=== PATIENT | male | born 1975 | race Caucasian/White ===

== ENCOUNTER → 2017-10-20 11:49 | Outpatient (CLI) | payer BC, SELFPAY ==
--- NOTE | 2017-10-20 11:58 | XR_ITS ---
XR shoulder RT min 2V HISTORY: ITS.REASON: SEVERE RT SHOULDER PAIN ORDERING PHYSICIAN: Lamont Rodriguez PATIENT AGE: 42 years COMPARISON: None FINDINGS: No fracture or dislocation. No lytic or blastic change. There is normal mineralization. The joint spaces are well-preserved. No significant degenerative/arthritic changes. No erosive changes evident. Small area of exostosis involving the proximal humerus and may be related to a small osteochondroma. IMPRESSION: 1. No acute finding or significant arthritic change. 2. Suspect small osteochondroma of the proximal humerus anteromedially
== END ==
PROVIDERS: PCP Internal Medicine; Visit Provider Internal Medicine
DX: M25.511 Pain in right shoulder (principal)
CPT/HCPCS: 73030

== ENCOUNTER → 2017-12-13 07:14 | Outpatient (CLI) | payer BC, SELFPAY ==
[2017-12-13 07:19] LABS: Microscopic, Urine URINE MICROSCOPIC (MICROSCOPIC)
[2017-12-13 07:49] LABS: Basophils % 0.5 % (0.1-2.0); Eosinophils # 0.1 K/mm3 (0.0-0.4); Eosinophils % 1.4 % (0.1-12.0); Hematocrit 47.5 % (42.0-52.0); Hemoglobin 15.6 g/dL (14.1-18.0); Lymphocytes # 1.7 K/mm3 (0.7-4.5); Lymphocytes % 23.6 K/mm3 (10-50); Mean Corpuscular HGB Conc 32.8 g/dL (31.8-35.4); Mean Corpuscular Hemoglobin 28.8 pg (27.0-31.2); Mean Corpuscular Volume 87.9 fl (80-94); Monocytes # 0.5 K/mm3 (0.1-1.0); Monocytes % 6.7 % (1.7-9.3); Neutrophils # 4.9 K/mm3 (1.8-7.8); Neutrophils % 67.7 % (37.0-80.0); Platelet Count 303 K/mm3 (142-424); Red Blood Count 5.41 M/mm3 (4.60-6.20); Red Cell Distribution Width 13.1 % (11.5-17.5); White Blood Count 7.2 K/mm3 (4.8-10.8)
[2017-12-13 08:18] LABS: Appearance,Urine SL CLOUDY (Clear); Bilirubin,Urine Negative (Negative); Blood, Urine Negative (Negative); Color,Urine YELLOW (Yellow); Glucose,Urine (UA) Negative (Negative); Ketones,Urine Negative (Negative); Leukocyte Esterase,Urine Negative (Negative); Nitrate,Urine Negative (Negative); Protein,Urine TRACE (Negative); Urobilinogen,Urine 0.2 EU/dl (0.2)
[2017-12-13 08:44] LABS: Bacteria,Urine Trace /lpf; Mucus,Urine 2+ /lpf; Sperm,Urine OCC /lpf; WBC,Urine Occasional #/hpf (0-3)
[2017-12-13 08:55] LABS: Albumin Level 3.9 gm/dL (3.4-5.0); Anion Gap 14.2 mEq/L (5-15); Blood Urea Nitrogen 21 mg/dL (7-18); Carbon Dioxide 26 mmol/L (21.0-32.0); Chloride 104 mmol/L (98-107); Creatinine,Serum 1.79 mg/dL (0.70-1.30); Estimated Glomerular Filt Rate 42 ml/min (>60); GFR (African American) 51 ML/MIN (>60); Glucose 103 mg/dL (74-106); Phosphorous 3.3 mg/dL (2.4-4.9); Potassium 4.2 mmoL/L (3.5-5.1); Sodium 140 mmol/L (136-145); Uric Acid 8.2 mg/dL (2.6-7.2)
[2017-12-13 08:57] LABS: Creatinine,Urine Random 322 mg/dL (20-320); Total Protein,Urine Random 37.3 mg/dL (0.0-11.9)
[2017-12-14 06:05] LABS: Vitamin D 25 Hydroxy 30.2 ng/mL (30.0-100.0)
[2017-12-17 12:45] LABS: Parathyroid Hormone Intact 32 pg/mL (15-65)
== END ==
PROVIDERS: Visit Provider Internal Medicine Nephrology
DX: N25.0 Renal osteodystrophy (principal)
CPT/HCPCS: 36415; 80069; 81001; 82570; 82652; 83970; 84155; 84550; 85025

== ENCOUNTER 2017-12-13 16:30 | Outpatient (RCR) | payer BC, SELFPAY | END 2017-12-13 16:31 | disposition home or self-care (01) | LOC: PT 16:30 | PROVIDERS: PCP Internal Medicine; Visit Provider Orthopaedic Surgery | DX: S43.431A Superior glenoid labrum lesion of right shoulder, initial encounter (principal) | CPT/HCPCS: 97110 ==

== ENCOUNTER → 2017-12-15 16:57 | Outpatient (CLI) | payer BC, SELFPAY | PROVIDERS: Visit Provider Internal Medicine Nephrology | DX: N25.0 Renal osteodystrophy (principal) | CPT/HCPCS: 36415; 82330 ==

== ENCOUNTER → 2017-12-20 12:58 | Outpatient (POV) | payer BC, SELFPAY | PROVIDERS: PCP Internal Medicine; Visit Provider Internal Medicine Nephrology | DX: Z00.00 Encounter for general adult medical examination without abnormal findings (principal) ==

== ENCOUNTER → 2019-01-26 16:49 | Outpatient (CLI) | payer BC, SELFPAY ==
[2019-01-26 16:55] LABS: Microscopic, Urine URINE MICROSCOPIC (MICROSCOPIC)
[2019-01-26 17:37] LABS: Appearance,Urine CLEAR (Clear); Bilirubin,Urine Negative (Negative); Blood, Urine Negative (Negative); Color,Urine YELLOW (Yellow); Glucose,Urine (UA) Negative (Negative); Ketones,Urine Negative (Negative); Leukocyte Esterase,Urine Negative (Negative); Nitrate,Urine Negative (Negative); PH,Urine 6.5 (5.0-8.5); Protein,Urine Negative (Negative); Specific Gravity, Urine <= 1.005 (1.005-1.030); Urobilinogen,Urine 0.2 EU/dl (0.2)
[2019-01-26 17:43] LABS: Creatinine,Urine Random 56 mg/dL (20-320); Total Protein,Urine Random 6.6 mg/dL (0.0-11.9)
[2019-01-26 17:46] LABS: Basophils % 0.6 % (0.1-2.0); Eosinophils # 0.1 K/mm3 (0.0-0.4); Eosinophils % 1.7 % (0.1-12.0); Hemoglobin 13.9 g/dL (14.1-18.0); Lymphocytes # 1.9 K/mm3 (0.7-4.5); Lymphocytes % 25.3 % (10-50); Mean Corpuscular HGB Conc 33.1 g/dL (31.8-35.4); Mean Corpuscular Hemoglobin 27.6 pg (27.0-31.2); Mean Corpuscular Volume 83.2 fl (80-94); Mean Platelet Volume 7.1 fl (7.4-10.4); Monocytes # 0.5 K/mm3 (0.1-1.0); Monocytes % 6.1 % (1.7-9.3); Neutrophils % 66.2 % (37.0-80.0); Platelet Count 280 K/mm3 (142-424); Red Blood Count 5.04 M/mm3 (4.60-6.20); Red Cell Distribution Width 13.1 % (11.5-17.5); White Blood Count 7.5 K/mm3 (4.8-10.8)
[2019-01-26 17:48] LABS: Bacteria,Urine Trace /lpf; Squamous Epithelial Cell,Urine Occasional #/hpf (0-5); WBC,Urine Occasional #/hpf (0-3)
[2019-01-26 18:44] LABS: Albumin Level 4.1 gm/dL (3.4-5.0); Blood Urea Nitrogen 15 mg/dL (7-18); Calcium 8.6 mg/dL (8.5-10.1); Carbon Dioxide 26 mmol/L (21.0-32.0); Chloride 105 mmol/L (98-107); Creatinine,Serum 1.72 mg/dL (0.70-1.30); Estimated Glomerular Filt Rate 44 ml/min (>60); GFR (African American) 53 ML/MIN (>60); Glucose 87 mg/dL (74-106); Phosphorous 2.9 mg/dL (2.4-4.9); Sodium 141 mmol/L (136-145)
[2019-01-28 20:48] LABS: Parathyroid Hormone Intact 48 pg/mL (15-65); Vitamin D 25 Hydroxy 27.2 ng/mL (30.0-100.0)
== END ==
PROVIDERS: Visit Provider Internal Medicine Nephrology
DX: N18.3 Chronic kidney disease, stage 3 (moderate) (principal)
CPT/HCPCS: 36415; 80069; 81001; 82330; 82570; 82652; 83970; 84155; 84550; 85025

== ENCOUNTER → 2019-02-01 12:44 | Outpatient (POV) | payer BC, SELFPAY | PROVIDERS: Visit Provider Internal Medicine Nephrology | DX: Z00.00 Encounter for general adult medical examination without abnormal findings (principal) ==

== ENCOUNTER 2020-09-02 09:24 | Emergency (ER) | payer BC, SELFPAY ==
[2020-09-02 09:25] VITALS: BP 124/89; PULSE 115; RESP 20; TEMP 37.6; O2SAT 95; BMI 36.2
[2020-09-02 09:57] LABS: UTC Influenza A Antigen Negative (Negative); UTC Influenza B Antigen Negative (Negative)
--- NOTE | 2020-09-02 09:57 | HMH.EDUTC ---
[facility] [place] Disposition Clinical Impression: Viral syndrome, Exposure to COVID-19 virus Disposition: Home, Self-Care Condition on Discharge: Good Instructions: DI for COVID-19 (Suspected or Confirmed ), Preventing the Spread of Coronavirus Discharge Instructions Additional Instructions: Drink plenty of fluids. Take tylenol for pain or fever. Return if you begin to have difficulty breathing. Follow up with your regular doctor. GO TO THE ER FOR ANY WORSENING SYMPTOMS Referrals: Lamont Rodriguez [Primary Care Provider] - Time of Disposition: 10:05 Medical Decision Making - Medical Records Medical records reviewed: No: I reviewed the patient's medical records. - Rojas Inquiry Pt receiving controlled substance: No Vital Signs: 09/02/20 09:25 09/02/20 10:13 Temperature 99.6 F 99.6 F Temperature Source Oral Pulse Rate 115 H Pulse Rate [Left Brachial] 115 H Respiratory Rate 20 20 Blood Pressure 124/89 Blood Pressure [Left Arm] 124/89 Blood Pressure Mean [Left Arm] 100 Blood Pressure Source [Left Arm] Automatic Cuff Blood Pressure Position [Left Arm] Sitting 02 Sat by Pulse Oximetry 95 Oxygen Delivery Method Room Air - Lab Data Lab Results 09/02/20 09:56: Influenza Type A Ag Negative, Influenza Type B Ag Negative Orders (Tests/Meds): ORDERS Category Date Time Status Covid-19 Nasal PCR ([facility]) Routine Lab 09/02/20 09:40 Received [facility] [place] HPI - General Stated complaint: tired, weakness covid test Time Seen by Provider: 09/02/20 09:57 Mode of Arrival: Ambulatory Source of Information: Patient Limitations: No Limitations Description of Symptoms (Recalled from Triage Doc. by RN): PATIENT C/O LOW-GRADE FEVER AND FATIGUE SINCE WEDNESDAY. NO KNOWN SICK CONTACTS HEENT Symptoms (Recalled from RN notes): No Resp Symptoms (Recalled from RN notes): No Skin Symptoms (Recalled from RN notes): No MS Symptoms (Recalled from RN notes): No Functional Status (Recalled from RN notes): WNL - History of Present Illness Provider Complaint: He states that for the past 3 days he has had a fever, feeling bad and fatigue. He states that his fever has been up to 100.1. He denies any cough or congestion. - Related Data Home Medications Medication Instructions Recorded Confirmed Atorvastatin Calcium [Lipitor 20mg 5 mg PO HS 09/02/20 09/02/20 Tab] allopurinoL [Allopurinol 300mg 300 mg PO DAILY 09/02/20 09/02/20 tablet] lisinopriL [Lisinopril 40mg Tablet] 40 mg PO DAILY 09/02/20 09/02/20 Allergies Allergy/AdvReac Type Severity Reaction Status Date / Time cephalexin [From KEFLEX] Allergy Unknown Verified 09/02/20 09:49 Penicillins [PENICILLINS] Allergy Unknown Verified 09/02/20 09:49 - Worker's Comp Is this a Worker's Comp case?: No [facility] History - Hepatitis A Screen Drug use history?: No High risk sexual behaviors?: No History of sexually transmitted infection?: No Currently employed?: No Childcare worker?: No Do you have indoor plumbing?: Yes Do you have electricity?: Yes Attestation statement:: This patient has been screened for Hepatitis A risk factors. I have reviewed the patient's past medical history: Yes - Social History Alcohol Intake: never Occupational Status: other ROS Obtained: Yes All systems reviewed & no additional complaints - Constitutional Constitutional: Reports system reviewed and no additional complaints, except as docu - Eyes Eyes: Reports system reviewed and no additional complaints, except as docu - ENT Ears, Nose, Mouth, and Throat: Reports system reviewed and no additional complaints, except as docu - Cardiovascular Cardiovascular: Reports system reviewed and no additional complaints, except as docu - Respiratory Respiratory: Reports system reviewed and no additional complaints, except as docu - Gastrointestinal Gastrointestingal: Reports: system reviewed and no additional complaints, except as docu Physical Exam - Genera
[2020-09-02 10:13] VITALS: BP 124/89; PULSE 115; RESP 20; TEMP 37.6; O2SAT 95
--- NOTE | 2020-09-02 17:09 | PC.NURSE ---
PATIENT NOTIFIED OF POSITIVE COVID RESULTS
== END 2020-09-02 10:15 | disposition home or self-care (01) ==
PROVIDERS: Emergency Provider Nurse Practitioner Family; PCP Internal Medicine
DX: U07.1 COVID-19 (principal); Z88.0 Allergy status to penicillin
CPT/HCPCS: 87804; 99202; G0463; U0003

== ENCOUNTER 2020-09-08 14:05 | Inpatient (IN) | payer BC, SELFPAY ==
[2020-09-08] VITALS (9 sets, daily range): BP systolic 102–134; BP diastolic 55–83; PULSE 90–102; RESP 18–44; TEMP 37.2–38.8; O2SAT 87–98; BMI 35.5; BMI 35.9
--- NOTE | 2020-09-08 14:25 | XR_ITS ---
PROCEDURE: XR CHEST PORTABLE Referring Doctor: Noam Velásquez Patient Age:45Y CLINICAL HISTORY: COVID + SOB . Pneumonia COMPARISON: No exams were available for comparison FINDINGS: AP portable upright chest performed. Suboptimal inspiration low lung volume. Diaphragm only down to the anterior 4th rib on right. Elevation right hemidiaphragm was seen on previous studies and again noted, slightly more pronounced today Multiple patchy bilateral infiltrates In the right lung low-density patchy region of infiltrate most notable at periphery of of the right mid and upper lung field. At left lung patchy infiltrates are seen at the periphery of the left mid lung and left lung base.. The heart is upper normal in size likely accentuated by the AP projection and poor inspiration. The mandeep and mediastinal structures appear similar. There is slight additional density inferior right hilum which may reflect a additional infiltrate projected over the right infrahilar area . Questionable minimal blunting left CP angle. Chest wall otherwise unremarkable . IMPRESSION: Bilateral multifocal pneumonia. Bilateral patchy infiltrates most notable towards the periphery of mid left lung and left lung base. Elevation right hemidiaphragm. Dictated by: Kal Hutchins MD 09/08/2020 16:40 Kal Hutchins MD in [place] 09/08/2020 16:40
--- NOTE | 2020-09-08 14:50 | ECG_ITS ---
APPROVED REPORT Exam: Resting ECG HR:97 bpm ECG Measurements Heart Rate 97 AXES MD 118 P 36 QRSd 70 QRS 28 QT 332 T 36 QTc 421 Conclusion Normal sinus rhythm NSSTTW changes. Abnormal ECG Electronically signed by : Isaias Lawson, 09/09/2020 19:38:32
[2020-09-08 14:54] LABS: Chloride 95 mmol/L (98-107); Sodium 130 mmol/L (136-145)
[2020-09-08 14:55] LABS: Basophils % 0.2 % (0.1-2.0); Eosinophils % 0.1 % (0.1-12.0); Hematocrit 42.2 % (42.0-52.0); Hemoglobin 14.4 g/dL (14.1-18.0); Lymphocytes # 0.8 K/mm3 (0.7-4.5); Lymphocytes % 9.9 % (10-50); Mean Corpuscular HGB Conc 34.1 g/dL (31.8-35.4); Mean Corpuscular Hemoglobin 29.5 pg (27.0-31.2); Mean Corpuscular Volume 86.3 fl (80-94); Mean Platelet Volume 7.3 fl (7.4-10.4); Monocytes # 0.2 K/mm3 (0.1-1.0); Monocytes % 2.9 % (1.7-9.3); Neutrophils # 6.6 K/mm3 (1.8-7.8); Platelet Count 254 K/mm3 (142-424); Potassium 4.3 mmoL/L (3.5-5.1); Red Blood Count 4.89 M/mm3 (4.60-6.20); Red Cell Distribution Width 13.8 % (11.5-17.5); White Blood Count 7.6 K/mm3 (4.8-10.8)
[2020-09-08 14:57] LABS: Alanine Aminotransferase 72 U/L (12-78); Albumin Level 4.1 g/dl (3.5-5.0); Albumin/Globulin Ratio 1.2 (1.1-1.8); Alkaline Phosphatase 47 U/L (38-126); Anion Gap 14.3 mEq/L (5-15); Aspartate Amino Transferase 87 U/L (17-59); Bilirubin,Total 0.6 mg/dl (0.2-1.3); Blood Urea Nitrogen 26 mg/dl (9-20); Carbon Dioxide 25 mmol/L (22.0-30.0); Creatinine Clearance Estimated 67 mL/min (50-200); Estimated Glomerular Filt Rate 31 ml/min (>60); GFR (African American) 38 ML/MIN (>60); Globulin 3.3 g/dL (1.3-3.2); Total Protein,Serum 7.4 g/dl (6.3-8.2)
[2020-09-08 14:58] LABS: Calcium 8.5 mg/dl (8.4-10.2); Glucose 136 mg/dl (74-100)
--- NOTE | 2020-09-08 15:00 | PC.NURSE ---
updated on plan of care
[2020-09-08 15:03] LABS: MANUAL DIFFERENTIAL MANUAL DIFFERENTIAL (MANUAL DIFF)
[2020-09-08 15:11] LABS: Troponin I < 0.01 ng/ml (0.00-0.034)
[2020-09-08 15:22] LABS: Lymphocytes % 7 % (10-50); Monocytes % 6 % (2-9); Neutrophils % 87 % (42-76); Platelet Estimate Normal; RBC Morphology Normal; Total Cells Counted 100
[2020-09-08 15:41] LABS: ABG HCO3 19.3 mmhg (22.0-26.0); ABG Oxygen Saturation 93 % (90-100); ABG PCO2 29.4 mmhg (35.0-45.0); ABG PH 7.43 mmol/L (7.35-7.45); ABG PO2 61.8 mmhg (80-100); ABG TCO2 20.2 mmhg (23-27); Allen's Test Acceptable; Source Right Radial
--- NOTE | 2020-09-08 15:58 | HMH.EDGENADL ---
ED Disposition Clinical Impression: Acute respiratory failure due to COVID-19 Iuian-ct-yzypirl kidney injury Qualifiers: Acute renal failure type: unspecified Chronic kidney disease stage: stage 3 (moderate) Chronic kidney disease stage 3 subtype: stage 3a (GFR 45-59) Qualified Code(s): N17.9 - Acute kidney failure, unspecified; N18.31 - Chronic kidney disease, stage 3a Hypertension Qualifiers: Hypertension type: essential hypertension Qualified Code(s): I10 - Essential (primary) hypertension Disposition: Admitted As Inpatient Condition on Discharge: Serious Referrals: Lamont Rodriguez [Primary Care Provider] - - Critical Care Critical Care Time: No Attestation: On 09/08/20, the high probability of a clinically significant, sudden or life threatening deterioration of the following system(s) required my full and direct attention, intervention and personal management. The time I documented below is in addition to time spent performing reported procedures but includes the following listed in this critical care notation. Medical Decision Making - Medical Records Medical records reviewed: Yes: I reviewed the patient's medical records. - Rojas Inquiry Pt receiving controlled substance: No Vital Signs: 09/08/20 14:08 09/08/20 14:38 09/08/20 15:04 Temperature 102 F H 99.9 F H Temperature Source Oral Oral Pulse Rate [Radial] 102 H 97 H Respiratory Rate 44 H 20 Blood Pressure [Right Arm] 131/83 104/71 L Blood Pressure Mean [Right Arm] 99 82 Blood Pressure Source [Right Arm] Automatic Cuff Blood Pressure Position [Right Arm] Sitting Supine 02 Sat by Pulse Oximetry 87 L 98 Oxygen Delivery Method Room Air Nasal Cannula Oxygen Flow Rate (LPM) 3 09/08/20 15:46 09/08/20 16:33 Temperature Temperature Source Pulse Rate [Radial] 93 H 94 H Respiratory Rate 18 20 Blood Pressure [Right Arm] 116/77 113/74 Blood Pressure Mean [Right Arm] 90 87 Blood Pressure Source [Right Arm] Automatic Cuff Blood Pressure Position [Right Arm] Sitting 02 Sat by Pulse Oximetry 94 L 87 L Oxygen Delivery Method Nasal Cannula Room Air Oxygen Flow Rate (LPM) 3 - Lab Data Lab Results 09/08/20 14:40: WBC 7.6, RBC 4.89, Hgb 14.4, Hct 42.2, MCV 86.3, MCH 29.5, MCHC 34.1, RDW 13.8, Plt Count 254, MPV 7.3 L, Neut % (Auto) 87.0 H, Lymph % (Auto) 9.9 L, [place] % (Auto) 2.9, Eos % (Auto) 0.1, Baso % (Auto) 0.2, Neut # (Auto) 6.6, Lymph # (Auto) 0.8, [place] # (Auto) 0.2, Eos # (Auto) 0.0, Baso # (Auto) 0.0, Total Counted 100, Neutrophils % (Manual) 87 H, Lymphocytes % (Manual) 7 L, Monocytes % (Manual) 6, Platelet Estimate Normal, RBC Morphology Normal 09/08/20 14:40: Sodium 130 L, Potassium 4.3, Chloride 95 L, Carbon Dioxide 25, Anion Gap 14.3, BUN 26 H, Creatinine 2.30 H, Estimated Creat Clear 67, Estimated GFR 31 L, Est GFR ( Amer) 38 L, Glucose 136 H, Calcium 8.5, Total Bilirubin 0.6, AST 87 H, ALT 72, Alkaline Phosphatase 47, Troponin I < 0.01, Total Protein 7.4, Albumin 4.1, Globulin 3.3 H, Albumin/Globulin Ratio 1.2 09/08/20 14:52: Specimen Source Right radial, O2 % 3l nc, ABG pH 7.43, ABG pCO2 29.4 L, ABG pO2 61.8 L, ABG HCO3 19.3 L, ABG Total CO2 20.2 L, ABG O2 Saturation 93, ABG Base Excess -5.0 L, Frank Test Acceptable Result diagrams: 09/08/20 14:40 09/08/20 14:40 Orders (Tests/Meds): ED MEDICATIONS Discontinued Medications Generic Name Dose Route Start Last Admin Trade Name Freq PRN Reason Stop Dose Admin Sodium Chloride 1,000 mls @ 999 mls/hr 09/08/20 14:30 09/08/20 14:43 Sod Chlor 0.9% 1000ml Bag IV 09/08/20 15:30 999 mls/hr .Q1H1M VANDANA Administration Ketorolac Tromethamine 30 mg 09/08/20 14:27 09/08/20 14:43 Ketorolac 30mg/Ml Vial IM 09/08/20 14:28 Not Given ONCE ONE ORDERS Category Date Time Status CTA Chest [CT angio chest] Stat Cat Scan 09/08/20 14:52 Stop Req XR chest portable Stat Exams 09/08/20 14:25 Taken Troponin I Q3H Lab 09/08/20 17:30 Ordered Troponin I
--- NOTE | 2020-09-08 16:35 | PC.NURSE ---
Dr. Bedoya pagebeatris
--- NOTE | 2020-09-08 16:36 | PC.NURSE ---
speaking with dr moran
--- NOTE | 2020-09-08 17:14 | PC.NURSE ---
pt and family updated on plan of care
--- NOTE | 2020-09-08 17:55 | PC.NURSE ---
report to paulino walker
[2020-09-09] VITALS (11 sets, daily range): BP systolic 94–163; BP diastolic 62–96; PULSE 72–98; RESP 18–36; TEMP 36.4–37.4; O2SAT 86–95; BMI 36.0; BMI 31.0
--- NOTE | 2020-09-09 05:04 | PC.NURSE ---
5LNC in place. pt had a temp beginning of shift but has been afebrile since prn medication given. pt has reported to be chilled at times. iv patent and infusing per order. independent with ambulation but becomes exerted. respiration rate remains out of range in upper 30's. call light in reach. will continue to monitor.
[2020-09-09 07:01] LABS: Alanine Aminotransferase 60 U/L (12-78); Albumin Level 3.8 g/dl (3.5-5.0); Albumin/Globulin Ratio 1.2 (1.1-1.8); Alkaline Phosphatase 50 U/L (38-126); Anion Gap 13.3 mEq/L (5-15); Aspartate Amino Transferase 70 U/L (17-59); Bilirubin,Total 0.5 mg/dl (0.2-1.3); Blood Urea Nitrogen 30 mg/dl (9-20); Calcium 8.2 mg/dl (8.4-10.2); Carbon Dioxide 21 mmol/L (22.0-30.0); Chloride 101 mmol/L (98-107); Creatinine Clearance Estimated 64 mL/min (50-200); Estimated Glomerular Filt Rate 34 ml/min (>60); GFR (African American) 42 ML/MIN (>60); Globulin 3.2 g/dL (1.3-3.2); Glucose 158 mg/dl (74-100); Potassium 4.3 mmoL/L (3.5-5.1); Sodium 131 mmol/L (136-145)
--- NOTE | 2020-09-09 07:28 | HMH.PHAVTE ---
[facility] Pharmacy VTE Monitoring - Patient Demographics Admission date: 09/08/20 Report Date: 09/09/20 Time: 07:28 Allergies/Adverse Reactions: Patient Allergies cephalexin [From KEFLEX] Allergy (Unknown, Verified 09/02/20 09:49) Penicillins [PENICILLINS] Allergy (Unknown, Verified 09/02/20 09:49) Height: 1.8 m Weight: 100.499 kg Patient Problems: Current Active Problems Acute respiratory failure due to COVID-19 (Acute) [id number] kidney injury (Acute) Hypertension (Acute) - VTE Risk Labs: VTE Related Lab Results Hgb 14.4 g/dL (14.1-18.0) 09/08/20 14:40 Hct 42.2 % (42.0-52.0) 09/08/20 14:40 Plt Count 254 K/mm3 (142-424) 09/08/20 14:40 BUN 30 mg/dl (9-20) H 09/09/20 06:30 Creatinine 2.10 mg/dl (0.66-1.25) H 09/09/20 06:30 Estimated Creat Clear 64 mL/min (50-200) 09/09/20 06:30 - Prophylaxis VTE Prophylaxis Ordered?: Yes Types of VTE Prophylaxis: TEDS Knee High, Pharmacological Location of Applied Device: Bilateral Lower Extremeties Pharmacologic Type: Enoxaparin
--- NOTE | 2020-09-09 07:33 | HMH.PHAINT ---
MEDICATION RECONCILIATION COMPLETED ON PATIENT USING EXTERNAL FILL HISTORY FROM PHARMACY. -LUÍS العلي, PRINCESSD
[2020-09-09 07:48] LABS: Basophils % 0.1 % (0.1-2.0); Hematocrit 43.9 % (42.0-52.0); Hemoglobin 14.2 g/dL (14.1-18.0); Lymphocytes # 0.7 K/mm3 (0.7-4.5); Lymphocytes % 8.1 % (10-50); Mean Corpuscular HGB Conc 32.4 g/dL (31.8-35.4); Mean Corpuscular Hemoglobin 29.3 pg (27.0-31.2); Mean Corpuscular Volume 90.5 fl (80-94); Mean Platelet Volume 11.7 fl (7.4-10.4); Monocytes # 0.3 K/mm3 (0.1-1.0); Monocytes % 3.4 % (1.7-9.3); Neutrophils # 7.3 K/mm3 (1.8-7.8); Neutrophils % 88.3 % (37.0-80.0); Platelet Count 293 K/mm3 (142-424); Red Blood Count 4.85 M/mm3 (4.60-6.20); Red Cell Distribution Width 14.5 % (11.5-17.5); White Blood Count 8.3 K/mm3 (4.8-10.8)
[2020-09-09 07:54] LABS: MANUAL DIFFERENTIAL MANUAL DIFFERENTIAL (MANUAL DIFF)
[2020-09-09 08:13] LABS: Lymphocytes % 10 % (10-50); Monocytes % 5 % (2-9); Neutrophils % 85 % (42-76); Platelet Estimate Normal; RBC Morphology Normal; Total Cells Counted 100
--- NOTE | 2020-09-09 10:06 | HMH.HP ---
*Admission Date: 09/08/20 *Chief complaint: soa *History of present illness: 45-year-old male presented to the emergency department with difficulty breathing and generalized weakness after recently testing positive for covid. Patient states that he has been taking Tylenol and Zofran over the last 3 days, however symptoms not improving. He states that he has severe fatigue, soa and generalized weakness. He has had very poor appetite and poor oral intake due to nausea. Patient admitted for pneumonia due to covid. pulmonary consult [facility] History I have reviewed the patient's past medical history: Yes Medical History: Denies:: Cancer, Diabetes Mellitus Type 1, Diabetes Mellitus Type 2, MRSA *Have you ever received a pneumonia vaccine?: No *Have you received a flu vaccine this season?: No Amputation: No - *Social History Smoking Status: Never smoker Alcohol Intake: never *Occupational Status:: employed Household Members: spouse, children *Travel in the last 8 weeks: None Family Hx:: No significant family history Review of Systems - Review of Systems Review of systems:: pertinent systems reviewed and negative unless documented below - Constitutional Reports fatigue, Reports malaise, Denies body ache(s), Denies chills, Denies fever(s) - Eyes Denies blurry vision - ENT Denies nose pain - *Cardiovascular Reports shortness of breath - *Respiratory Reports shortness of breath, Reports shortness of breath with activity - *Gastrointestinal Reports nausea - *Genitourinary Denies urinary frequency - *Musculoskeletal Reports muscle weakness, Denies joint pain - Integumentary/Breasts Denies rash - *Neurologic Denies headache(s), Denies loss of vision - Psychiatric Denies anxiety - Endocrine Denies excessive sweating - Hematologic/Lymphatic Denies easy bruising - Allergic/Immunologic Denies GI upset with certain foods Meds Home Medications Medication Instructions Recorded Confirmed Type Atorvastatin Calcium [Lipitor 20mg 10 mg PO HS 09/02/20 09/08/20 History Tab] allopurinoL [Allopurinol 300mg 300 mg PO DAILY 09/02/20 09/08/20 History tablet] lisinopriL [Lisinopril 40mg Tablet] 60 mg PO DAILY 09/02/20 09/08/20 History Cholecalciferol (Vitamin D3) 2,000 unit PO DAILY 09/08/20 09/08/20 History [Vitamin D3 1,000 Unit Cap] ondansetron HCL [Ondansetron 4mg 4 mg PO TIDP PRN 09/08/20 09/09/20 History tab*] Allergies Allergy/AdvReac Type Severity Reaction Status Date / Time cephalexin [From KEFLEX] Allergy Unknown Verified 09/02/20 09:49 Penicillins [PENICILLINS] Allergy Unknown Verified 09/02/20 09:49 Exam Vital signs and Labs for Last 24 Hours: Temp Pulse Resp BP Pulse Ox 98.2 F 89 18 143/90 H 89 L 09/09/20 08:00 09/09/20 08:00 09/09/20 08:00 09/09/20 08:00 09/09/20 08:00 Laboratory Results - last 24 hr 09/08/20 14:40: WBC 7.6, RBC 4.89, Hgb 14.4, Hct 42.2, MCV 86.3, MCH 29.5, MCHC 34.1, RDW 13.8, Plt Count 254, MPV 7.3 L, Neut % (Auto) 87.0 H, Lymph % (Auto) 9.9 L, [place] % (Auto) 2.9, Eos % (Auto) 0.1, Baso % (Auto) 0.2, Neut # (Auto) 6.6, Lymph # (Auto) 0.8, [place] # (Auto) 0.2, Eos # (Auto) 0.0, Baso # (Auto) 0.0, Total Counted 100, Neutrophils % (Manual) 87 H, Lymphocytes % (Manual) 7 L, Monocytes % (Manual) 6, Platelet Estimate Normal, RBC Morphology Normal 09/08/20 14:40: Sodium 130 L, Potassium 4.3, Chloride 95 L, Carbon Dioxide 25, Anion Gap 14.3, BUN 26 H, Creatinine 2.30 H, Estimated Creat Clear 67, Estimated GFR 31 L, Est GFR ( Amer) 38 L, Glucose 136 H, Calcium 8.5, Total Bilirubin 0.6, AST 87 H, ALT 72, Alkaline Phosphatase 47, Troponin I < 0.01, Total Protein 7.4, Albumin 4.1, Globulin 3.3 H, Albumin/Globulin Ratio 1.2 09/08/20 14:52: Specimen Source Right radial, O2 % 3l nc, ABG pH 7.43, ABG pCO2 29.4 L, ABG pO2 61.8 L, ABG HCO3 19.3 L, ABG Total CO2 20.2 L, ABG O2 Saturation 93, ABG Base Excess -5.0 L, Frank Test Acceptable 09/09/20 06:30:
--- NOTE | 2020-09-09 10:49 | HMH.PULMCON ---
*Admission Date: 09/08/20 *History of present illness: Mr. Lucero is a 45-year-old male never smoker, no prior respiratory complaints with a recent diagnosis of COVID-19 when he presented emergently worsening respiratory failure needing oxygen supplementation pulmonary was called for further management. Patient also complains of chest congestion along with cough and productive phlegm. Patient also admits he is unable to take deep breaths. [place] any lower extremity swelling. Denies any hemoptysis. Denies any pain with breathing. [facility] History Medical History: Denies:: Cancer, Diabetes Mellitus Type 1, Diabetes Mellitus Type 2, MRSA *Have you ever received a pneumonia vaccine?: No *Have you received a flu vaccine this season?: No Amputation: No - *Social History Smoking Status: Never smoker Alcohol Intake: never *Occupational Status:: employed Household Members: spouse, children *Travel in the last 8 weeks: None Family Hx:: No significant family history ROS - Review of Systems Review of systems:: pertinent systems reviewed and negative unless documented below - Cons Reports body ache(s), Reports chills - Card Reports shortness of breath, Reports shortness of breath with activity, Denies leg swelling - Resp Respiratory: Reports chest congestion, Reports cough, Reports dyspnea on exertion, Reports excessive phlegm production - GI Gastrointestingal: Reports: system reviewed and no additional complaints, except as docu - [place] Musculoskeletal: Reports system reviewed and no additional complaints, except as docu Meds Home Medications Medication Instructions Recorded Confirmed Type Atorvastatin Calcium [Lipitor 20mg 10 mg PO HS 09/02/20 09/08/20 History Tab] allopurinoL [Allopurinol 300mg 300 mg PO DAILY 09/02/20 09/08/20 History tablet] lisinopriL [Lisinopril 40mg Tablet] 60 mg PO DAILY 09/02/20 09/08/20 History Cholecalciferol (Vitamin D3) 2,000 unit PO DAILY 09/08/20 09/08/20 History [Vitamin D3 1,000 Unit Cap] ondansetron HCL [Ondansetron 4mg 4 mg PO TIDP PRN 09/08/20 09/09/20 History tab*] Allergies Allergy/AdvReac Type Severity Reaction Status Date / Time cephalexin [From KEFLEX] Allergy Unknown Verified 09/02/20 09:49 Penicillins [PENICILLINS] Allergy Unknown Verified 09/02/20 09:49 Exam - Constitutional Comment:: Patient appears to be in mild respiratory distress. On 5 L nasal cannula. - HENMT Exam HENMT: atraumatic - Eye Exam Eyes:: eyelids normal, normal conjunctiva - Neck Exam Neck:: thyroid normal, no lymphadenopathy - Respiratory Exam Comments: Patient unable to talk in complete sentences. Appears to be in respiratory distress. On 5 L nasal cannula saturating 86 to 90%. Bilateral coarse breath sounds. - Cardiovascular Exam Cardiac:: S1, S2 - GI Exam GI:: soft - Skin Exam Skin: warm, no rash - Neurological Exam Neurological: awake, normal cognition - Extremities Exam Extremities: no cyanosis, no clubbing, no edema Internal Medicine - CN: Reslt - Labs CBC & Chem 7: 09/09/20 07:30 09/09/20 06:30 Labs: Short CBC 09/08/20 09/09/20 Range/Units 14:40 07:30 WBC 7.6 8.3 (4.8-10.8) K/mm3 Hgb 14.4 14.2 (14.1-18.0) g/dL Hct 42.2 43.9 (42.0-52.0) % Plt Count 254 293 (142-424) K/mm3 BMP 09/08/20 09/09/20 14:40 06:30 Sodium 130 L 131 L Potassium 4.3 4.3 Chloride 95 L 101 Carbon Dioxide 25 21 L BUN 26 H 30 H Creatinine 2.30 H 2.10 H Glucose 136 H 158 H Calcium 8.5 8.2 L Cardiac Enzymes 09/08/20 Range/Units 14:40 Troponin I < 0.01 (0.00-0.034) ng/ml Liver Function 09/08/20 09/09/20 Range/Units 14:40 06:30 Total Bilirubin 0.6 0.5 (0.2-1.3) mg/dl AST 87 H 70 H (17-59) U/L ALT 72 60 (12-78) U/L Alkaline Phosphatase 47 50 (38-126) U/L Albumin 4.1 3.8 (3.5-5.0) g/dl - ABG Interpretation ABG results: 09/08/20 14:52 ABG pH 7.43
[2020-09-09 12:05] LABS: D-Dimer 0.72 ug/mL (0.0-0.5)
--- NOTE | 2020-09-09 15:03 | PC.NURSE ---
PT GIVEN CUP AND INSTRUCTED ON WHAT TO DO, NO SPUTUM SAMPLE COULD BE GIVEN AT THIS TIME.
--- NOTE | 2020-09-09 19:00 | PC.NURSE ---
A&OX4. PT HAS TOLERATED 5L OK TODAY. ATTEMPTED TO TURN PT DOWN TO 4L ONCE THIS SHIFT AND PT DROPPED TO 85%. PT GETS SOB W EXERTION. EXPIRATORY WHEEZES NOTED THROUGHOUT. OCCASIONAL DRY, NONPRODUCTIVE COUGH NOTED. HAND DEPUTY JUVENILE OFFICER EQUAL. +2 PULSES NOTED THROUGHOUT. ACTIVE BOWEL SOUNDS HEARD IN ALL 4 QUADRANTS. SOFT AND NONTENDER ABDOMEN. NO BM REPORTED. PT VOIDS PER BATHROOM WITH STANDBY ASSIST. PT HAS RECEIVED SEVERAL ANTIBIOTICS THIS SHIFT AND TOLERATED WELL. NS INFUSING AT 100ML/HR. PT SAT UP IN THE CHAIR FOR A FEW HOURS TODAY AND TOLERATED WELL. ENCOURAGED PT TO SIT IN THE CHAIR FOR EVERY MEAL. NO REPORTS OF PAIN OR NAUSEA THROUGHOUT SHIFT. PT HAS REMAINED AFEBRILE. BED IN LOWEST POSITION. CALL LIGHT WITHIN REACH. VSS. WILL CONTINUE TO MONITOR.
--- NOTE | 2020-09-09 23:16 | PC.NURSE ---
He is A&Ox4. He reports SOA. He has difficulty speaking whole sentences r/t to dyspnea. He is now on a vapotherm @ 25LPM 70FiO2. He denies having a cough.
--- NOTE | 2020-09-09 23:54 | PC.NURSE ---
DURING ASSESSMENT PT WAS LYING IN BED WITH O2 NC AT 5 L. PT STATED HE WAS NOT COMFORTABLE AT ALL AND WAS HAVING A DIFFICULT TIME BREATHING. O2 SATURATION WAS 82-86% AND PT WAS BREATHING 40/MIN. 50% VENTI MASK WAS ATTEMPTED O2 SATURATION DID IMPROVE BUT PT WAS STILL BREATHING 40/MIN AND BECAME VERY ANXIOUS WHEN HE WAS ASKED TO TRY TO TAKE SLOW DEEP BREATHS AND STATED THE MASK WAS NOT WORKING. PHYSICIAN DIRECTOR DIGITAL CATALOGUE WAS NOTIFIED AND HE STATED TO TRY VAPOTHERM. PT WAS MOVED TO THE ICU TO BE MONITORED ON CONTINUOUS PULSE OX. REPORT HAND OFF TO LIANE SWEENEY RN.
[2020-09-10] VITALS (10 sets, daily range): BP systolic 102–140; BP diastolic 69–81; PULSE 71–92; RESP 20–22; TEMP 36.2–36.6; O2SAT 90–97; BMI 32.9
[2020-09-10 05:57] LABS: Basophils % 0.1 % (0.1-2.0); Hematocrit 37.4 % (42.0-52.0); Lymphocytes # 0.7 K/mm3 (0.7-4.5); Lymphocytes % 8.2 % (10-50); Mean Corpuscular Hemoglobin 29.1 pg (27.0-31.2); Mean Corpuscular Volume 85.5 fl (80-94); Mean Platelet Volume 7.8 fl (7.4-10.4); Monocytes # 0.4 K/mm3 (0.1-1.0); Monocytes % 5.2 % (1.7-9.3); Neutrophils # 7.1 K/mm3 (1.8-7.8); Neutrophils % 86.5 % (37.0-80.0); Platelet Count 317 K/mm3 (142-424); Red Blood Count 4.38 M/mm3 (4.60-6.20); Red Cell Distribution Width 14.5 % (11.5-17.5); White Blood Count 8.2 K/mm3 (4.8-10.8)
[2020-09-10 06:03] LABS: Alanine Aminotransferase 108 U/L (12-78); Albumin Level 3.3 g/dl (3.5-5.0); Albumin/Globulin Ratio 1.1 (1.1-1.8); Alkaline Phosphatase 55 U/L (38-126); Anion Gap 12.6 mEq/L (5-15); Aspartate Amino Transferase 112 U/L (17-59); Bilirubin,Total 0.5 mg/dl (0.2-1.3); Blood Urea Nitrogen 34 mg/dl (9-20); Calcium 8.2 mg/dl (8.4-10.2); Carbon Dioxide 21 mmol/L (22.0-30.0); Chloride 105 mmol/L (98-107); Creatinine Clearance Estimated 71 mL/min (50-200); Estimated Glomerular Filt Rate 36 ml/min (>60); GFR (African American) 44 ML/MIN (>60); Globulin 3.1 g/dL (1.3-3.2); Glucose 137 mg/dl (74-100); Potassium 4.6 mmoL/L (3.5-5.1); Sodium 134 mmol/L (136-145); Total Protein,Serum 6.4 g/dl (6.3-8.2)
[2020-09-10 06:58] LABS: MANUAL DIFFERENTIAL MANUAL DIFFERENTIAL (MANUAL DIFF)
--- NOTE | 2020-09-10 08:29 | XR_ITS ---
PROCEDURE: XR CHEST PORTABLE CLINICAL HISTORY: Hypoxia Covid19 positive COMPARISON: CR CXR CHEST(2 VIEWS-NOT PORTABLE) from 04/15/2015 CR XR CHEST PORTABLE from 09/08/2020 FINDINGS: The cardiomediastinal silhouette and pulmonary vascularity are within normal limits. Consolidation is present in the right upper lobe and left lower lobe and appears slightly worse on the left compared to the previous exam. Atelectatic changes are present in the right lower lobe with hypoventilation No acute bony abnormalities. IMPRESSION: Bilateral pneumonia slightly worse on the left Dictated by: Frank Spencer MD 09/10/2020 10:03 Frank Spencer MD in [place] 09/10/2020 10:03
[2020-09-10 08:41] LABS: Lymphocytes % 10 % (10-50); Monocytes % 3 % (2-9); Neutrophils % 87 % (42-76); Total Cells Counted 100
[2020-09-10 08:42] LABS: Platelet Estimate Normal; RBC Morphology Normal
[2020-09-10 09:42] LABS: Hemoglobin 12.7 g/dL (14.1-18.0)
--- NOTE | 2020-09-10 11:49 | HMH.ACPN2 ---
Internal Medicine - PN: Subj *Date: 09/10/20 *Time: 11:55 Interval history: 45-year-old patient sitting up in bed, oxygenation per 35% Vapotherm, oxygen saturation 95%. Patient is short of breath during conversation and reports he is not feeling any better today than yesterday. Exam Vital signs and Labs for Last 24 Hours: Temp Pulse Resp BP Pulse Ox 97.2 F L 91 H 21 112/74 97 09/10/20 08:00 09/10/20 11:05 09/10/20 08:00 09/10/20 08:00 09/10/20 11:05 Laboratory Results - last 24 hr 09/09/20 11:25: D-Dimer 0.72 H 09/10/20 05:05: Sodium 134 L, Potassium 4.6, Chloride 105, Carbon Dioxide 21 L, Anion Gap 12.6, BUN 34 H, Creatinine 2.00 H, Estimated Creat Clear 71, Estimated GFR 36 L, Est GFR ( Amer) 44 L, Glucose 137 H, Calcium 8.2 L, Total Bilirubin 0.5, AST 112 H D, ALT 108 H D, Alkaline Phosphatase 55, Total Protein 6.4, Albumin 3.3 L D, Globulin 3.1, Albumin/Globulin Ratio 1.1 09/10/20 05:05: WBC 8.2, RBC 4.38 L, Hgb 12.7 L D, Hct 37.4 L, MCV 85.5, MCH 29.1, MCHC 34.0, RDW 14.5, Plt Count 317, MPV 7.8, Neut % (Auto) 86.5 H, Lymph % (Auto) 8.2 L, [place] % (Auto) 5.2, Eos % (Auto) 0.0 L, Baso % (Auto) 0.1, Neut # (Auto) 7.1, Lymph # (Auto) 0.7, [place] # (Auto) 0.4, Eos # (Auto) 0.0, Baso # (Auto) 0.0, Total Counted 100, Neutrophils % (Manual) 87 H, Lymphocytes % (Manual) 10, Monocytes % (Manual) 3, Platelet Estimate Normal, RBC Morphology Normal I & O for Last 24 hours: Intake & Output 09/07/20 09/08/20 09/09/20 09/10/20 23:59 23:59 23:59 23:59 Intake Total 240 / 240 1152 / 1162 60 / 60 Output Total 800 / 800 Balance 240 / 240 1152 / 1162 -740 / -740 Weight 258 lb 221 lb 9 oz 235 lb 8 oz Microbiology Reports for the Last 24 Hours: Microbiology 09/09/20 21:58 Sputum - Expectorated Sputum Gram Stain - Final 09/09/20 21:58 Sputum - Expectorated Sputum Sputum Culture - Preliminary - Constitutional mild distress, obese - *Routine HEENT Exam Head: Present: normocephalic Eye: Present: EOMI ENT: Present: mucous membranes moist - *Routine Neck Exam Present: trachea midline. Absent: tracheal deviation - *Routine Respiratory Exam Present: rhonchi. Absent: accessory muscle use - *Routine Cardiovascular Exam Present: RRR - *Routine Abdominal Exam Present: soft, normoactive bowel sounds. Absent: tenderness, rigid - *Routine Extremities Exam Present: full ROM, pulses intact. Absent: cyanosis, clubbing, edema - *Routine Skin Exam Present: intact, dry, warm. Absent: erythema, jaundice - *Routine Neurological Exam Present: alert, oriented X3. Absent: altered mental status - Routine Psychiatric Exam Present: normal affect, normal thought process, cooperative. Absent: visual hallucinations Assessment and Plan (1) Acute respiratory failure due to COVID-19 Status: Acute Category: Medical Code(s): U07.1 - COVID-19; J96.00 - Acute respiratory failure, unspecified whether with hypoxia or hypercapnia (2) Lfpai-sn-lvroykd kidney injury Status: Acute Qualifiers: Acute renal failure type: unspecified Chronic kidney disease stage: stage 3 (moderate) Chronic kidney disease stage 3 subtype: stage 3a (GFR 45-59) Qualified Code(s): N17.9 - Acute kidney failure, unspecified; N18.31 - Chronic kidney disease, stage 3a Category: Medical Code(s): N17.9 - Acute kidney failure, unspecified; N18.9 - Chronic kidney disease, unspecified (3) Hypertension Status: Acute Qualifiers: Hypertension type: essential hypertension Qualified Code(s): I10 - Essential (primary) hypertension Category: Medical Code(s): I10 - Essential (primary) hypertension (4) Exposure to COVID-19 virus Status: Acute Category: Medical Code(s): Z20.822 - Contact with and (suspected) exposure to COVID-19 - Assessment and plan all Dx Assessment and Plan for all problems:: Rounded with Dr. Bedoya, all orders per Dr. Bedoya: 1. Await pulmonology input
--- NOTE | 2020-09-10 15:23 | HMH.PULMPN ---
Internal Medicine - PN: Subj *Date: 09/10/20 *Time: 15:23 Interval history: Patient respiratory status worsened in the last 24 hours, now needing high flow nasal cannula to maintain ideal O2 saturations Exam - Constitutional Constitutional:: comfortable Comment:: In mild respiratory distress - HENMT Exam HENMT: normocephalic - Eye Exam Eyes:: eyelids normal, normal conjunctiva - Neck Exam Neck:: normal visual inspection - Respiratory Exam Comments: Patient appears anxious, unable to speak in complete sentences. Appeared to be in mild respiratory distress. Patient getting getting tachypneic with shallow breathing during anxiety leading to desaturations of 85 to 90% but however after counseling and after taking deep breaths patient saturations improved 100% - Cardiovascular Exam Cardiac:: S1, S2 - GI Exam GI:: soft - Skin Exam Skin: warm, no rash, dry - Neurological Exam Neurological: normal cognition - Extremities Exam Extremities: no cyanosis, no clubbing, no edema Assessment and Plan (1) Acute respiratory failure due to COVID-19 Status: Acute Category: Medical Code(s): U07.1 - COVID-19; J96.00 - Acute respiratory failure, unspecified whether with hypoxia or hypercapnia (2) Kgfns-ez-pgzpjes kidney injury Status: Acute Qualifiers: Acute renal failure type: unspecified Chronic kidney disease stage: stage 3 (moderate) Chronic kidney disease stage 3 subtype: stage 3a (GFR 45-59) Qualified Code(s): N17.9 - Acute kidney failure, unspecified; N18.31 - Chronic kidney disease, stage 3a Category: Medical Code(s): N17.9 - Acute kidney failure, unspecified; N18.9 - Chronic kidney disease, unspecified (3) Hypertension Status: Acute Qualifiers: Hypertension type: essential hypertension Qualified Code(s): I10 - Essential (primary) hypertension Category: Medical Code(s): I10 - Essential (primary) hypertension (4) Exposure to COVID-19 virus Status: Acute Category: Medical Code(s): Z20.822 - Contact with and (suspected) exposure to COVID-19 - Assessment and plan all Dx Assessment and Plan for all problems:: #Acute hypoxic respiratory failure: #COVID-19 pneumonia: 45-year-old never smoker no prior respiratory complaints recent diagnosis of COVID-19 at present with gradually worsening respiratory failure. Chest x-ray, poor penetration however showed bilateral patchy airspace disease. D-dimer mildly elevated at 0.72. Respiratory status gradually worsened since admission initial leading-5 L nasal cannula eventual escalated to high flow nasal cannula 100% with saturations anywhere between 88 to 96%. Patient having significant anxiety issues leading to shallow breathing and desaturations. Chest x-ray showed slightly worsening pneumonia on the left side. No evidence of leukocytosis. Renal function slightly improved with creatinine now at 2.0. Overall patient respiratory status is critical worsening since admission, patient appeared to be in mild respiratory distress, I believe his respiratory status is likely more secondary to anxiety. We will closely monitor. Plan: - Continue oxygen supplementation via high flow nasal cannula to maintain oxygen saturations of 88% to 92% - Continue Levoflaxacin for possible community-acquired pneumonia (patient allergic to penicillin). - MRSA screen, follow with blood and sputum cultures (prelim sputum staining showed gram-positive diplococci and gram-positive cocci in clusters) - Continue remdesivir and dexamethasone for COVID-19 pneumonia - DuoNebs every 6 hours scheduled Total critical care time spent on this patient is 30 minutes managing acute hypoxic respiratory failure needing high flow nasal cannula. This time spent include reviewing test results including interpreting chest x-rays, labs and formulating plan of care, discussing the plan of care with the team and the nursing staff.
--- NOTE | 2020-09-10 19:51 | PC.NURSE ---
PATIENT A&O X4, LUNG SOUNDS ARE DIMINISHED, PULSES ARE EQUAL. PATIENT DID NOT EAT ANY OF HIS MEALS. THIS RN ENCOURAGE PATIENT TO EAT AND OFFERED OTHER OPTIONS, PATIENT CONTINUED TO REFUSE. THIS RN PROVIDED JELLO AND BEEF BROTH. UP TO THIS TIME, PATIENT HAD NOT EATEN. PATIENT WAS EDUCATED OF THE IMPORTANCE OF PRONE POSITION, PATIENT VERBALIZED AN UNDERSTANDING AND REFUSED. PATIENT UP TO CHAIR FOR MOST OF THIS RN SHIFT. NO OTHER CONCERNS AT THIS TIME.
[2020-09-11] VITALS (11 sets, daily range): BP systolic 114–146; BP diastolic 70–89; PULSE 72–88; RESP 16–24; TEMP 36.2–37.1; O2SAT 90–97; BMI 35.4
[2020-09-11 07:52] LABS: Alanine Aminotransferase 93 U/L (12-78); Albumin Level 3.1 g/dl (3.5-5.0); Alkaline Phosphatase 54 U/L (38-126); Anion Gap 11.5 mEq/L (5-15); Aspartate Amino Transferase 72 U/L (17-59); Bilirubin,Total 0.5 mg/dl (0.2-1.3); Blood Urea Nitrogen 35 mg/dl (9-20); Calcium 8.1 mg/dl (8.4-10.2); Carbon Dioxide 21 mmol/L (22.0-30.0); Chloride 108 mmol/L (98-107); Creatinine Clearance Estimated 90 mL/min (50-200); Estimated Glomerular Filt Rate 44 ml/min (>60); GFR (African American) 53 ML/MIN (>60); Glucose 137 mg/dl (74-100); Potassium 4.5 mmoL/L (3.5-5.1); Sodium 136 mmol/L (136-145); Total Protein,Serum 6.1 g/dl (6.3-8.2)
[2020-09-11 08:00] LABS: Basophils % 0.3 % (0.1-2.0); Hematocrit 37.4 % (42.0-52.0); Hemoglobin 12.6 g/dL (14.1-18.0); Lymphocytes # 0.7 K/mm3 (0.7-4.5); Lymphocytes % 11.9 % (10-50); Mean Corpuscular HGB Conc 33.7 g/dL (31.8-35.4); Mean Corpuscular Hemoglobin 29.6 pg (27.0-31.2); Mean Corpuscular Volume 87.9 fl (80-94); Mean Platelet Volume 8.2 fl (7.4-10.4); Monocytes # 0.5 K/mm3 (0.1-1.0); Monocytes % 8.5 % (1.7-9.3); Neutrophils # 4.7 K/mm3 (1.8-7.8); Neutrophils % 79.3 % (37.0-80.0); Platelet Count 340 K/mm3 (142-424); Red Blood Count 4.26 M/mm3 (4.60-6.20); Red Cell Distribution Width 14.5 % (11.5-17.5); White Blood Count 5.9 K/mm3 (4.8-10.8)
--- NOTE | 2020-09-11 08:01 | PC.NURSE ---
PT IS RESTING IN BED. PT WAS SITTING UP IN THE CHAIR TILL 0030 THIS MORNING. PT STATES HE DOES NOT FEEL SOA WHEN ON VAPOTHERM. PT WAS ENCOURAGED TO USE A INCENTIVE SPIROMETER THIS SHIFT AND HE STATED HE DID NOT WANT TO B/C HE WAS AFRAID HE WOULD PANIC WHILE TAKING IN A DEEP BREATH. PT DOES NOT WANT TO CHANGE POSITIONS IN THE BED. O2 SATURATION HAS MAINTAINED 92-97% ON 35 L AND 75% FIO2. LUNG SOUNDS DIMINISHED WITH FINE CRACKLES IN THE RT BASE. ABDOMEN SOFT/NON TENDER WITH ACTIVE BOWEL SOUNDS. VOIDING PER URINAL. VSS. REPORT HANDOFF TO ALINA MOSES RN.
--- NOTE | 2020-09-11 09:39 | HMH.ACPN2 ---
Internal Medicine - PN: Subj *Date: 09/11/20 *Time: 08:30 Interval history: pt sitting on side of bed eating breakfast, states some better, vapertherm in place Exam Vital signs and Labs for Last 24 Hours: Temp Pulse Resp BP Pulse Ox 97.1 F L 76 20 116/70 91 L 09/11/20 08:00 09/11/20 08:00 09/11/20 08:00 09/11/20 08:00 09/11/20 08:00 Laboratory Results - last 24 hr 09/10/20 05:05: Hgb 12.7 L D 09/11/20 05:50: Sodium 136, Potassium 4.5, Chloride 108 H, Carbon Dioxide 21 L, Anion Gap 11.5, BUN 35 H, Creatinine 1.70 H, Estimated Creat Clear 90, Estimated GFR 44 L, Est GFR ( Amer) 53 L D, Glucose 137 H, Calcium 8.1 L, Total Bilirubin 0.5, AST 72 H D, ALT 93 H, Alkaline Phosphatase 54, Total Protein 6.1 L, Albumin 3.1 L, Globulin 3.0, Albumin/Globulin Ratio 1.0 L 09/11/20 05:50: WBC 5.9 D, RBC 4.26 L, Hgb 12.6 L, Hct 37.4 L, MCV 87.9, MCH 29.6, MCHC 33.7, RDW 14.5, Plt Count 340, MPV 8.2, Neut % (Auto) 79.3, Lymph % (Auto) 11.9, [place] % (Auto) 8.5, Eos % (Auto) 0.0 L, Baso % (Auto) 0.3, Neut # (Auto) 4.7, Lymph # (Auto) 0.7, [place] # (Auto) 0.5, Eos # (Auto) 0.0, Baso # (Auto) 0.0 I & O for Last 24 hours: Intake & Output 09/08/20 09/09/20 09/10/20 09/11/20 11:59 11:59 11:59 11:59 Intake Total 1092 / 1092 360 / 360 480 / 480 Output Total 800 / 800 500 / 500 Balance 1092 / 1092 -440 / -440 - Weight 221 lb 9 oz 235 lb 8 oz 253 lb Microbiology Reports for the Last 24 Hours: Microbiology 09/09/20 21:58 Sputum - Expectorated Sputum Gram Stain - Final 09/09/20 21:58 Sputum - Expectorated Sputum Sputum Culture - Preliminary - Constitutional no acute distress, obese - *Routine HEENT Exam Head: Present: normocephalic Eye: Present: PERRL ENT: Present: mucous membranes moist - *Routine Neck Exam Present: supple. Absent: lymphadenopathy - *Routine Respiratory Exam Present: rhonchi - *Routine Cardiovascular Exam Present: RRR - *Routine Abdominal Exam Present: soft, normoactive bowel sounds. Absent: tenderness - *Routine Extremities Exam Present: normal capillary refill. Absent: cyanosis, clubbing, edema - *Routine Skin Exam Present: warm. Absent: rash - *Routine Neurological Exam Present: alert, oriented X3 - Routine Psychiatric Exam Present: normal affect Assessment and Plan (1) Acute respiratory failure due to COVID-19 Status: Acute Category: Medical Code(s): U07.1 - COVID-19; J96.00 - Acute respiratory failure, unspecified whether with hypoxia or hypercapnia (2) Wklng-vw-wgcoxov kidney injury Status: Acute Qualifiers: Acute renal failure type: unspecified Chronic kidney disease stage: stage 3 (moderate) Chronic kidney disease stage 3 subtype: stage 3a (GFR 45-59) Qualified Code(s): N17.9 - Acute kidney failure, unspecified; N18.31 - Chronic kidney disease, stage 3a Category: Medical Code(s): N17.9 - Acute kidney failure, unspecified; N18.9 - Chronic kidney disease, unspecified (3) Hypertension Status: Acute Qualifiers: Hypertension type: essential hypertension Qualified Code(s): I10 - Essential (primary) hypertension Category: Medical Code(s): I10 - Essential (primary) hypertension (4) Exposure to COVID-19 virus Status: Acute Category: Medical Code(s): Z20.822 - Contact with and (suspected) exposure to COVID-19 (5) Obesity (BMI 30-39.9) Status: Acute Category: Medical Code(s): E66.9 - Obesity, unspecified - Assessment and plan all Dx Assessment and Plan for all problems:: continue treatments try weaning vapertherm
--- NOTE | 2020-09-11 16:48 | HMH.PULMPN ---
Internal Medicine - PN: Subj *Date: 09/11/20 *Time: 16:48 Interval history: No acute respiratory events overnight. Exam - Constitutional Constitutional:: comfortable - HENMT Exam HENMT: normocephalic, atraumatic - Respiratory Exam Respiratory:: able to speak in complete sentences, crackles - Cardiovascular Exam Cardiac:: S1, S2 - GI Exam GI:: soft, no hepatosplenomegaly - Skin Exam Skin: warm, no rash - Neurological Exam Neurological: alert, awake, normal cognition - Extremities Exam Extremities: no cyanosis, no clubbing, no edema Assessment and Plan (1) Acute respiratory failure due to COVID-19 Status: Acute Category: Medical Code(s): U07.1 - COVID-19; J96.00 - Acute respiratory failure, unspecified whether with hypoxia or hypercapnia (2) Clgab-hf-uftkrpk kidney injury Status: Acute Qualifiers: Acute renal failure type: unspecified Chronic kidney disease stage: stage 3 (moderate) Chronic kidney disease stage 3 subtype: stage 3a (GFR 45-59) Qualified Code(s): N17.9 - Acute kidney failure, unspecified; N18.31 - Chronic kidney disease, stage 3a Category: Medical Code(s): N17.9 - Acute kidney failure, unspecified; N18.9 - Chronic kidney disease, unspecified (3) Hypertension Status: Acute Qualifiers: Hypertension type: essential hypertension Qualified Code(s): I10 - Essential (primary) hypertension Category: Medical Code(s): I10 - Essential (primary) hypertension (4) Exposure to COVID-19 virus Status: Acute Category: Medical Code(s): Z20.822 - Contact with and (suspected) exposure to COVID-19 (5) Obesity (BMI 30-39.9) Status: Acute Category: Medical Code(s): E66.9 - Obesity, unspecified - Assessment and plan all Dx Assessment and Plan for all problems:: #Acute hypoxic respiratory failure: #COVID-19 pneumonia: 45-year-old never smoker no prior respiratory complaints recent diagnosis of COVID-19 at present with gradually worsening respiratory failure. Chest x-ray, poor penetration however showed bilateral patchy airspace disease. D-dimer mildly elevated at 0.72. Patient on admission on nasal cannula 5 L, escalated to high flow nasal cannula at 100% Interval update: Patient respiratory status slightly improved from yesterday, his effort requirements weaned this morning to 65% with saturations maintained above 92%. Patient also admits improvement in his symptoms. Sputum growing gram-positive diplococci and cocci in clusters,. Patient unchanged from yesterday. White count decreased from 8.2-5.9. Creatinine improved now at 1.70 with a BUN at 35. Nasal MRSA screen negative Plan: - Continue oxygen supplementation via high flow nasal cannula -wean FiO2 as tolerated with O2 saturation goal of 88 to 92% - Continue Levoflaxacin for possible community-acquired pneumonia (patient allergic to penicillin). - F/U sputum cultures - Continue remdesivir and dexamethasone for COVID-19 pneumonia - DuoNebs every 6 hours scheduled Total critical care time spent on this patient is 30 minutes managing acute hypoxic respiratory failure needing high flow nasal cannula. This time spent include reviewing test results including interpreting chest x-rays, labs and formulating plan of care, discussing the plan of care with the team and the nursing staff.
--- NOTE | 2020-09-11 17:28 | DIET.NUTRFU ---
Addendum entered by Adelina Pickering 09/13/20 17:15: Continues with poor intakes- 15%, weight down 4#. He is receiving supplements TID, no changes at this time. Continuing to monitor. Original Note: Pt with minimal PO intakes- 10-25%. 18# weight gain reported over past 24h. Pt is on a regular diet with TID supplements. Pt has had anxiety rt SOA and is difficult to encourage to eat, continued excellent efforts from nursing appreciated.
--- NOTE | 2020-09-11 18:00 | PC.NURSE ---
patient has done very well this shift. has sat in chair all day. weaned down to 50% on vapotherm and sating 98%. will continue to wean and switch to nasal cannula. has had no complaints. has ate a litte more this shift. lung sounds diminished. vitals have been stable.
[2020-09-12] VITALS (12 sets, daily range): BP systolic 124–149; BP diastolic 80–96; PULSE 78–96; RESP 18–22; TEMP 36.1–36.8; O2SAT 90–97; BMI 34.7
--- NOTE | 2020-09-12 04:38 | PC.NURSE ---
PT IS RESTING IN BED. PT STATES HE FEELS SOMEWHAT BETTER THAN YESTERDAY. O2 SATURATION HAS MAINTAINED 89-92% ON VAPOTHERM AT 30L AND 45% FI02. VSS. LUNG SOUNDS DIMINISHED WITH FINE CRACKLES IN THE BASES. ABDOMEN SOFT/NON TENDER WITH ACTIVE BOWEL SOUNDS. 1+ NON PITTING EDEMA NOTED TO BLE. PT NEEDS TO BE ENCOURAGED TO USE THE INCENTIVE SPIROMETER AND REPOSITION IN BED. PT STILL DOES NOT HAVE ANY APPETITE BUT HAS BEEN DRINKING PLENTY OF FLUIDS. URINATING WELL. WILL CONTINUE TO MONITOR.
[2020-09-12 10:06] LABS: Basophils % 0.3 % (0.1-2.0); Eosinophils % 0.1 % (0.1-12.0); Hematocrit 42.6 % (42.0-52.0); Hemoglobin 14.4 g/dL (14.1-18.0); Lymphocytes # 1.1 K/mm3 (0.7-4.5); Mean Corpuscular HGB Conc 33.7 g/dL (31.8-35.4); Mean Corpuscular Hemoglobin 29.5 pg (27.0-31.2); Mean Corpuscular Volume 87.6 fl (80-94); Mean Platelet Volume 7.3 fl (7.4-10.4); Monocytes # 0.6 K/mm3 (0.1-1.0); Monocytes % 6.2 % (1.7-9.3); Neutrophils # 8.1 K/mm3 (1.8-7.8); Neutrophils % 82.5 % (37.0-80.0); Platelet Count 475 K/mm3 (142-424); Red Blood Count 4.87 M/mm3 (4.60-6.20); Red Cell Distribution Width 14.3 % (11.5-17.5); White Blood Count 9.9 K/mm3 (4.8-10.8)
[2020-09-12 10:21] LABS: Chloride 109 mmol/L (98-107)
[2020-09-12 10:22] LABS: Potassium 4.3 mmoL/L (3.5-5.1); Sodium 139 mmol/L (136-145)
[2020-09-12 10:24] LABS: Alanine Aminotransferase 122 U/L (12-78); Aspartate Amino Transferase 73 U/L (17-59); Blood Urea Nitrogen 37 mg/dl (9-20); Creatinine Clearance Estimated 88 mL/min (50-200); Estimated Glomerular Filt Rate 44 ml/min (>60); GFR (African American) 53 ML/MIN (>60)
[2020-09-12 10:25] LABS: Albumin Level 3.5 g/dl (3.5-5.0); Albumin/Globulin Ratio 1.1 (1.1-1.8); Alkaline Phosphatase 67 U/L (38-126); Anion Gap 14.3 mEq/L (5-15); Bilirubin,Total 0.7 mg/dl (0.2-1.3); Calcium 8.8 mg/dl (8.4-10.2); Carbon Dioxide 20 mmol/L (22.0-30.0); Globulin 3.2 g/dL (1.3-3.2); Glucose 118 mg/dl (74-100); Total Protein,Serum 6.7 g/dl (6.3-8.2)
--- NOTE | 2020-09-12 10:40 | HMH.PULMPN ---
Internal Medicine - PN: Subj *Date: 09/12/20 *Time: 10:40 Interval history: No acute respiratory events overnight. Exam - Constitutional Constitutional:: no acute distress, comfortable - Respiratory Exam Respiratory:: able to speak in complete sentences Comments: In mild respiratory distress. Bilateral coarse breath sounds unchanged from yesterday. Able to talk in complete sentences. - Cardiovascular Exam Cardiac:: S1, S2 - GI Exam GI:: soft - Skin Exam Skin: warm, no rash - Neurological Exam Neurological: alert, awake, normal cognition - Extremities Exam Extremities: no cyanosis, no clubbing, edema Assessment and Plan (1) Acute respiratory failure due to COVID-19 Status: Acute Category: Medical Code(s): U07.1 - COVID-19; J96.00 - Acute respiratory failure, unspecified whether with hypoxia or hypercapnia (2) Ahsio-bv-dfxmhsf kidney injury Status: Acute Qualifiers: Acute renal failure type: unspecified Chronic kidney disease stage: stage 3 (moderate) Chronic kidney disease stage 3 subtype: stage 3a (GFR 45-59) Qualified Code(s): N17.9 - Acute kidney failure, unspecified; N18.31 - Chronic kidney disease, stage 3a Category: Medical Code(s): N17.9 - Acute kidney failure, unspecified; N18.9 - Chronic kidney disease, unspecified (3) Hypertension Status: Acute Qualifiers: Hypertension type: essential hypertension Qualified Code(s): I10 - Essential (primary) hypertension Category: Medical Code(s): I10 - Essential (primary) hypertension (4) Exposure to COVID-19 virus Status: Acute Category: Medical Code(s): Z20.822 - Contact with and (suspected) exposure to COVID-19 (5) Obesity (BMI 30-39.9) Status: Acute Category: Medical Code(s): E66.9 - Obesity, unspecified - Assessment and plan all Dx Assessment and Plan for all problems:: #Acute hypoxic respiratory failure: #COVID-19 pneumonia: 45-year-old never smoker no prior respiratory complaints recent diagnosis of COVID-19 at present with gradually worsening respiratory failure. Chest x-ray, poor penetration however showed bilateral patchy airspace disease. D-dimer mildly elevated at 0.72. Patient on admission on nasal cannula 5 L, escalated to high flow nasal cannula at 100% Interval update: Patient continued to receive levofloxacin along with remdesivir and dexamethasone. Respiratory status remained stable from yesterday patient has been on 60% high flow nasal cannula with saturations 88 to 92%. Auscultation revealed bilateral coarse breath sounds unchanged from yesterday Patient appears to be a volume overload with bilateral lower extremity edema, will give 40 of Lasix. Creatinine improved from admission, now stable at 1.70 Nasal MRSA screen negative. Sputum grew normal respiratory yamilex Plan: - Lasix 40 mg IV once - Continue oxygen supplementation via high flow nasal cannula -wean FiO2 as tolerated with O2 saturation goal of 88 to 92% - Continue Levoflaxacin for possible community-acquired pneumonia(patient allergic to penicillin). - Continue remdesivir and dexamethasone for COVID-19 pneumonia - DuoNebs every 6 hours scheduled Total critical care time spent on this patient is 30 minutes managing acute hypoxic respiratory failure needing high flow nasal cannula. This time spent include reviewing test results including interpreting chest x-rays, labs and formulating plan of care, discussing the plan of care with the team and the nursing staff.
--- NOTE | 2020-09-12 12:00 | XR_ITS ---
PROCEDURE: XR CHEST PORTABLE CLINICAL HISTORY: covid pneumonia COMPARISON: CR CXR CHEST(2 VIEWS-NOT PORTABLE) from 04/15/2015 CR XR CHEST PORTABLE from 09/08/2020 CR XR CHEST PORTABLE from 09/10/2020 FINDINGS: The cardiomediastinal silhouette and pulmonary vascularity are within normal limits. Pneumonia once again noted in the left lower lobe not significantly changed. Infiltrate also present in the right upper lobe slightly worse. There are low lung volumes with atelectatic changes in the right lung base. No acute bony abnormalities. IMPRESSION: Bilateral pneumonia slightly worse in the right upper lobe Dictated by: Frank Spencer MD 09/12/2020 13:18 Frank Spencer MD in [facility] 09/12/2020 13:18
--- NOTE | 2020-09-12 12:32 | HMH.ACPN2 ---
Internal Medicine - PN: Subj *Date: 09/12/20 *Time: 08:15 Interval history: pt sitting up on side of bed. states feeling a little bit better Exam Vital signs and Labs for Last 24 Hours: Temp Pulse Resp BP Pulse Ox 97.0 F L 82 20 135/94 H 94 L 09/12/20 12:00 09/12/20 12:00 09/12/20 12:00 09/12/20 12:00 09/12/20 12:00 Laboratory Results - last 24 hr 09/12/20 09:55: Sodium 139, Potassium 4.3, Chloride 109 H, Carbon Dioxide 20 L, Anion Gap 14.3, BUN 37 H, Creatinine 1.70 H, Estimated Creat Clear 88, Estimated GFR 44 L, Est GFR ( Amer) 53 L, Glucose 118 H, Calcium 8.8, Total Bilirubin 0.7, AST 73 H, ALT 122 H D, Alkaline Phosphatase 67, Total Protein 6.7, Albumin 3.5 D, Globulin 3.2, Albumin/Globulin Ratio 1.1 09/12/20 09:55: WBC 9.9 D, RBC 4.87, Hgb 14.4, Hct 42.6, MCV 87.6, MCH 29.5, MCHC 33.7, RDW 14.3, Plt Count 475 H D, MPV 7.3 L, Neut % (Auto) 82.5 H, Lymph % (Auto) 11.0, [place] % (Auto) 6.2, Eos % (Auto) 0.1, Baso % (Auto) 0.3, Neut # (Auto) 8.1 H, Lymph # (Auto) 1.1, [place] # (Auto) 0.6, Eos # (Auto) 0.0, Baso # (Auto) 0.0 I & O for Last 24 hours: Intake & Output 09/10/20 09/11/20 09/12/20 09/13/20 11:59 11:59 11:59 11:59 Intake Total 360 / 360 720 / 720 600 / 600 Output Total 800 / 800 500 / 500 1950 / 2650 700 / 700 Balance -440 / -440 220 / 220 -1350 / -2050 -700 / -700 Weight 235 lb 8 oz 253 lb 248 lb Microbiology Reports for the Last 24 Hours: Microbiology 09/09/20 21:58 Sputum - Expectorated Sputum Gram Stain - Final 09/09/20 21:58 Sputum - Expectorated Sputum Sputum Culture - Final Normal Respiratory Gracie 09/09/20 12:00 Nose - Nasal MRSA Culture - Final Negative - Constitutional no acute distress, obese - *Routine HEENT Exam Head: Present: normocephalic Eye: Present: PERRL ENT: Present: mucous membranes moist - *Routine Neck Exam Present: supple. Absent: lymphadenopathy - *Routine Respiratory Exam Present: rales - *Routine Cardiovascular Exam Present: RRR - *Routine Abdominal Exam Present: soft, normoactive bowel sounds. Absent: tenderness - *Routine Extremities Exam Present: normal capillary refill. Absent: cyanosis, clubbing, edema - *Routine Skin Exam Present: warm. Absent: rash - *Routine Neurological Exam Present: alert, oriented X3 - Routine Psychiatric Exam Present: normal affect Assessment and Plan (1) Acute respiratory failure due to COVID-19 Status: Acute Category: Medical Code(s): U07.1 - COVID-19; J96.00 - Acute respiratory failure, unspecified whether with hypoxia or hypercapnia (2) Pjewp-qt-nevoaek kidney injury Status: Acute Qualifiers: Acute renal failure type: unspecified Chronic kidney disease stage: stage 3 (moderate) Chronic kidney disease stage 3 subtype: stage 3a (GFR 45-59) Qualified Code(s): N17.9 - Acute kidney failure, unspecified; N18.31 - Chronic kidney disease, stage 3a Category: Medical Code(s): N17.9 - Acute kidney failure, unspecified; N18.9 - Chronic kidney disease, unspecified (3) Hypertension Status: Acute Qualifiers: Hypertension type: essential hypertension Qualified Code(s): I10 - Essential (primary) hypertension Category: Medical Code(s): I10 - Essential (primary) hypertension (4) Exposure to COVID-19 virus Status: Acute Category: Medical Code(s): Z20.822 - Contact with and (suspected) exposure to COVID-19 (5) Obesity (BMI 30-39.9) Status: Acute Category: Medical Code(s): E66.9 - Obesity, unspecified - Assessment and plan all Dx Assessment and Plan for all problems:: rounded with dr moran all orders per dr moran continue to wean vapertherm decrease iv fluids to 50 ml/hr
--- NOTE | 2020-09-12 16:26 | HMH.ACPN ---
Internal Medicine - PN: Subj *Date: 09/12/20 *Time: 16:26 Exam Vital signs and Labs for Last 24 Hours: Temp Pulse Resp BP Pulse Ox 97.0 F L 82 20 135/94 H 94 L 09/12/20 12:00 09/12/20 12:00 09/12/20 12:00 09/12/20 12:00 09/12/20 12:00 Laboratory Results - last 24 hr 09/12/20 09:55: Sodium 139, Potassium 4.3, Chloride 109 H, Carbon Dioxide 20 L, Anion Gap 14.3, BUN 37 H, Creatinine 1.70 H, Estimated Creat Clear 88, Estimated GFR 44 L, Est GFR ( Amer) 53 L, Glucose 118 H, Calcium 8.8, Total Bilirubin 0.7, AST 73 H, ALT 122 H D, Alkaline Phosphatase 67, Total Protein 6.7, Albumin 3.5 D, Globulin 3.2, Albumin/Globulin Ratio 1.1 09/12/20 09:55: WBC 9.9 D, RBC 4.87, Hgb 14.4, Hct 42.6, MCV 87.6, MCH 29.5, MCHC 33.7, RDW 14.3, Plt Count 475 H D, MPV 7.3 L, Neut % (Auto) 82.5 H, Lymph % (Auto) 11.0, [place] % (Auto) 6.2, Eos % (Auto) 0.1, Baso % (Auto) 0.3, Neut # (Auto) 8.1 H, Lymph # (Auto) 1.1, [place] # (Auto) 0.6, Eos # (Auto) 0.0, Baso # (Auto) 0.0 I & O for Last 24 hours: Intake & Output 09/09/20 09/10/20 09/11/20 09/12/20 23:59 23:59 23:59 23:59 Intake Total 1152 / 1162 540 / 540 840 / 840 240 / 240 Output Total 1300 / 1300 1500 / 1500 3025 / 3025 Balance 1152 / 1162 -760 / -760 -660 / -660 -2785 / -2785 Weight 100.499 kg 106.821 kg 114.759 kg 112.491 kg Microbiology Reports for the Last 24 Hours: Microbiology 01/18/21 21:58 Sputum - Expectorated Sputum Gram Stain - Final 09/09/20 21:58 Sputum - Expectorated Sputum Sputum Culture - Final Normal Respiratory Gracie Assessment and Plan (1) Acute respiratory failure due to COVID-19 Status: Acute Category: Medical Code(s): U07.1 - COVID-19; J96.00 - Acute respiratory failure, unspecified whether with hypoxia or hypercapnia (2) Ifvwn-pv-ztdbmlw kidney injury Status: Acute Qualifiers: Acute renal failure type: unspecified Chronic kidney disease stage: stage 3 (moderate) Chronic kidney disease stage 3 subtype: stage 3a (GFR 45-59) Qualified Code(s): N17.9 - Acute kidney failure, unspecified; N18.31 - Chronic kidney disease, stage 3a Category: Medical Code(s): N17.9 - Acute kidney failure, unspecified; N18.9 - Chronic kidney disease, unspecified (3) Hypertension Status: Acute Qualifiers: Hypertension type: essential hypertension Qualified Code(s): I10 - Essential (primary) hypertension Category: Medical Code(s): I10 - Essential (primary) hypertension (4) Exposure to COVID-19 virus Status: Acute Category: Medical Code(s): Z20.822 - Contact with and (suspected) exposure to COVID-19 (5) Obesity (BMI 30-39.9) Status: Acute Category: Medical Code(s): E66.9 - Obesity, unspecified The patient's infection will respond to the chosen ABx?: Yes Is the patient receiving the right drug, dose, and route?: Yes Could a more targeted ABx be ordered?: No
--- NOTE | 2020-09-12 17:05 | PC.NURSE ---
patient has had an okay day. currently on 25l and 45% vapotherm. did not toerate weaning anymore. has been up to chair all day. encouraged to use incentive spirometer. rings out as needed. has had good output. swelling in ankles appears better. did request his phone which brought and gave to staff. this was given to the patient. he is currently washing up/giving self a bath. will change sheets once finished. sats have been 88-93%. with exertion is noted to drop sats about 85-87%. relays patient is a heavy snorer at home. it was noted while sleeping patient desats. vitals have been stable. appetite is still poor. encouraged to at least drink shakes. has been drinking plenty of water.
[2020-09-13] VITALS (12 sets, daily range): BP systolic 112–134; BP diastolic 75–97; PULSE 67–94; RESP 17–20; TEMP 36.3–37.1; O2SAT 90–93; BMI 34.2
[2020-09-13 06:22] LABS: Chloride 107 mmol/L (98-107); Potassium 4.3 mmoL/L (3.5-5.1); Sodium 138 mmol/L (136-145)
[2020-09-13 06:25] LABS: Alanine Aminotransferase 108 U/L (12-78); Albumin Level 3.4 g/dl (3.5-5.0); Albumin/Globulin Ratio 1.1 (1.1-1.8); Alkaline Phosphatase 55 U/L (38-126); Anion Gap 11.3 mEq/L (5-15); Aspartate Amino Transferase 50 U/L (17-59); Bilirubin,Total 0.8 mg/dl (0.2-1.3); Blood Urea Nitrogen 39 mg/dl (9-20); Carbon Dioxide 24 mmol/L (22.0-30.0); Creatinine Clearance Estimated 87 mL/min (50-200); Estimated Glomerular Filt Rate 44 ml/min (>60); GFR (African American) 53 ML/MIN (>60); Globulin 3.1 g/dL (1.3-3.2); Total Protein,Serum 6.5 g/dl (6.3-8.2)
[2020-09-13 06:26] LABS: Calcium 8.7 mg/dl (8.4-10.2); Glucose 107 mg/dl (74-100)
[2020-09-13 06:43] LABS: Basophils % 0.2 % (0.1-2.0); Eosinophils % 0.1 % (0.1-12.0); Hematocrit 40.4 % (42.0-52.0); Hemoglobin 13.6 g/dL (14.1-18.0); Lymphocytes # 1.3 K/mm3 (0.7-4.5); Lymphocytes % 12.8 % (10-50); Mean Corpuscular HGB Conc 33.7 g/dL (31.8-35.4); Mean Corpuscular Hemoglobin 29.2 pg (27.0-31.2); Mean Corpuscular Volume 86.7 fl (80-94); Mean Platelet Volume 8.2 fl (7.4-10.4); Monocytes # 0.9 K/mm3 (0.1-1.0); Monocytes % 8.8 % (1.7-9.3); Neutrophils % 78.1 % (37.0-80.0); Platelet Count 461 K/mm3 (142-424); Red Blood Count 4.66 M/mm3 (4.60-6.20); Red Cell Distribution Width 14.1 % (11.5-17.5); White Blood Count 10.3 K/mm3 (4.8-10.8)
--- NOTE | 2020-09-13 08:19 | XR_ITS ---
PROCEDURE: XR CHEST PORTABLE CLINICAL HISTORY: pneumonia/covid COMPARISON: CR XR CHEST PORTABLE from 09/08/2020 CR XR CHEST PORTABLE from 09/10/2020 CR XR CHEST PORTABLE from 09/12/2020 FINDINGS: Mild cardiomegaly without failure. There are low lung volumes with elevated right hemidiaphragm. Bilateral areas of infiltrate once again noted right upper lobe right lower lobe and left mid lower lung zone which appears slightly worse. No evidence of pneumothorax. No acute bony abnormalities. IMPRESSION: Slight worsening bilateral pneumonia Dictated by: Frank Spencer MD 09/13/2020 09:18 Frank Spencer MD in [facility] 09/13/2020 09:18
--- NOTE | 2020-09-13 08:44 | HMH.ACPN2 ---
Internal Medicine - PN: Subj *Date: 09/13/20 *Time: 08:44 Interval history: pt states he is feeling much better and wants to go home, discussed he will need off vapertherm to o2 prior to dc Exam Vital signs and Labs for Last 24 Hours: Temp Pulse Resp BP Pulse Ox 97.3 F L 71 17 118/84 91 L 09/13/20 04:00 09/13/20 04:00 09/13/20 04:00 09/13/20 04:00 09/13/20 04:00 Laboratory Results - last 24 hr 09/12/20 09:55: Sodium 139, Potassium 4.3, Chloride 109 H, Carbon Dioxide 20 L, Anion Gap 14.3, BUN 37 H, Creatinine 1.70 H, Estimated Creat Clear 88, Estimated GFR 44 L, Est GFR ( Amer) 53 L, Glucose 118 H, Calcium 8.8, Total Bilirubin 0.7, AST 73 H, ALT 122 H D, Alkaline Phosphatase 67, Total Protein 6.7, Albumin 3.5 D, Globulin 3.2, Albumin/Globulin Ratio 1.1 09/12/20 09:55: WBC 9.9 D, RBC 4.87, Hgb 14.4, Hct 42.6, MCV 87.6, MCH 29.5, MCHC 33.7, RDW 14.3, Plt Count 475 H D, MPV 7.3 L, Neut % (Auto) 82.5 H, Lymph % (Auto) 11.0, [place] % (Auto) 6.2, Eos % (Auto) 0.1, Baso % (Auto) 0.3, Neut # (Auto) 8.1 H, Lymph # (Auto) 1.1, [place] # (Auto) 0.6, Eos # (Auto) 0.0, Baso # (Auto) 0.0 09/13/20 05:35: Sodium 138, Potassium 4.3, Chloride 107, Carbon Dioxide 24, Anion Gap 11.3, BUN 39 H, Creatinine 1.70 H, Estimated Creat Clear 87, Estimated GFR 44 L, Est GFR ( Amer) 53 L, Glucose 107 H, Calcium 8.7, Total Bilirubin 0.8, AST 50 D, ALT 108 H, Alkaline Phosphatase 55, Total Protein 6.5, Albumin 3.4 L, Globulin 3.1, Albumin/Globulin Ratio 1.1 09/13/20 05:35: WBC 10.3, RBC 4.66, Hgb 13.6 L, Hct 40.4 L, MCV 86.7, MCH 29.2, MCHC 33.7, RDW 14.1, Plt Count 461 H, MPV 8.2, Neut % (Auto) 78.1, Lymph % (Auto) 12.8, [place] % (Auto) 8.8, Eos % (Auto) 0.1, Baso % (Auto) 0.2, Neut # (Auto) 8.0 H, Lymph # (Auto) 1.3, [place] # (Auto) 0.9, Eos # (Auto) 0.0, Baso # (Auto) 0.0 I & O for Last 24 hours: Intake & Output 09/10/20 09/11/20 09/12/20 09/13/20 11:59 11:59 11:59 11:59 Intake Total 360 / 360 720 / 720 600 / 600 250 / 250 Output Total 800 / 800 500 / 500 1950 / 2650 2825 / 2825 Balance -440 / -440 220 / 220 -1350 / -2050 -2575 / -2575 Weight 235 lb 8 oz 253 lb 248 lb 244 lb 3.2 oz Microbiology Reports for the Last 24 Hours: Microbiology 09/09/20 21:58 Sputum - Expectorated Sputum Gram Stain - Final 09/09/20 21:58 Sputum - Expectorated Sputum Sputum Culture - Final Normal Respiratory Gracie - Constitutional no acute distress, obese - *Routine HEENT Exam Head: Present: normocephalic Eye: Present: PERRL ENT: Present: mucous membranes moist - *Routine Neck Exam Present: supple. Absent: lymphadenopathy - *Routine Respiratory Exam Present: rhonchi - *Routine Cardiovascular Exam Present: RRR - *Routine Abdominal Exam Present: soft, normoactive bowel sounds. Absent: tenderness - *Routine Extremities Exam Present: normal capillary refill. Absent: cyanosis, clubbing, edema - *Routine Skin Exam Present: warm. Absent: rash - *Routine Neurological Exam Present: alert, oriented X3 - Routine Psychiatric Exam Present: normal affect Assessment and Plan (1) Acute respiratory failure due to COVID-19 Status: Acute Category: Medical Code(s): U07.1 - COVID-19; J96.00 - Acute respiratory failure, unspecified whether with hypoxia or hypercapnia (2) Vcoth-kp-mwydqmo kidney injury Status: Acute Qualifiers: Acute renal failure type: unspecified Chronic kidney disease stage: stage 3 (moderate) Chronic kidney disease stage 3 subtype: stage 3a (GFR 45-59) Qualified Code(s): N17.9 - Acute kidney failure, unspecified; N18.31 - Chronic kidney disease, stage 3a Category: Medical Code(s): N17.9 - Acute kidney failure, unspecified; N18.9 - Chronic kidney disease, unspecified (3) Hypertension Status: Acute Qualifiers: Hypertension type: essential hypertension Qualified Code(s): I10 - Essential (primary) hypertension Category: Medical Code(s): I10 - Es
--- NOTE | 2020-09-13 09:00 | HMH.PULMPN ---
Internal Medicine - PN: Subj *Date: 09/13/20 *Time: 13:33 Interval history: Patient respiratory status significantly improved from yesterday, this morning weaned to nasal cannula 5 L saturating 88 to 92%. Patient also admits significant improvement in his breathing. Exam - Constitutional Constitutional:: Present: no acute distress, comfortable - Eye Exam Eyes:: Present: normal appearance both eyes and related structures - Neck Exam Neck:: Present: normal visual inspection - Respiratory Exam Respiratory:: Present: able to speak in complete sentences, no respiratory distress, normal respiratory effort Comments: Bilateral coarse breath sounds, improved from yesterday. No wheezing heard. Appears comfortable. Not in respiratory distress - Cardiovascular Exam Cardiac:: Present: S1, S2 - GI Exam GI:: Present: soft - Skin Exam Skin: Present: warm, no rash, dry - Neurological Exam Neurological: Present: alert, awake, normal cognition - Extremities Exam Extremities: Present: no cyanosis, no clubbing, no edema - Psychiatric Exam Psychiatric: Present: normal affect Assessment and Plan (1) Acute respiratory failure due to COVID-19 Status: Acute Category: Medical Code(s): U07.1 - COVID-19; J96.00 - Acute respiratory failure, unspecified whether with hypoxia or hypercapnia (2) Syukt-qf-pzbyijm kidney injury Status: Acute Qualifiers: Acute renal failure type: unspecified Chronic kidney disease stage: stage 3 (moderate) Chronic kidney disease stage 3 subtype: stage 3a (GFR 45-59) Qualified Code(s): N17.9 - Acute kidney failure, unspecified; N18.31 - Chronic kidney disease, stage 3a Category: Medical Code(s): N17.9 - Acute kidney failure, unspecified; N18.9 - Chronic kidney disease, unspecified (3) Hypertension Status: Acute Qualifiers: Hypertension type: essential hypertension Qualified Code(s): I10 - Essential (primary) hypertension Category: Medical Code(s): I10 - Essential (primary) hypertension (4) Exposure to COVID-19 virus Status: Acute Category: Medical Code(s): Z20.822 - Contact with and (suspected) exposure to COVID-19 (5) Obesity (BMI 30-39.9) Status: Acute Category: Medical Code(s): E66.9 - Obesity, unspecified - Assessment and plan all Dx Assessment and Plan for all problems:: #Acute hypoxic respiratory failure: #COVID-19 pneumonia: 45-year-old never smoker no prior respiratory complaints recent diagnosis of COVID-19 at present with gradually worsening respiratory failure. Chest x-ray, poor penetration however showed bilateral patchy airspace disease. D-dimer mildly elevated at 0.72. Interval update: Patient respiratory status significantly improved from yesterday, wean from high flow 60% to 5 L nasal cannula this morning saturating 88 to 90%. Does not appear to be in any respiratory distress. Bilateral coarse breath sounds improved from yesterday. Patient continued to receive levofloxacin along with remdesivir and dexamethasone. Creatinine improved from admission, now stable at 1.70 Nasal MRSA screen negative. Sputum grew normal respiratory yamilex Overall this patient respiratory status improving, will wean oxygen as tolerated Plan: - Continue oxygen supplementation via nasal cannula with O2 saturation goal of 88% to 90%, wean as tolerated - Continue Levoflaxacin for possible community-acquired pneumonia(patient allergic to penicillin). - Continue remdesivir and dexamethasone for COVID-19 pneumonia - DuoNebs every 6 hours scheduled #Thank you for involving pulmonary in this patient care. We will continue to follow.
--- NOTE | 2020-09-13 17:44 | PC.NURSE ---
Patient is currently resting in recliner. Alert and oriented x 4. Seems withdrawn, very quiet individual. Pulmonary: patient is currently on 4 l of oxygen, was on 3l for a good part of the day but desat'ed and had to be increased. Will occasionally desat with exertion. Patients appetite is diminished. Was given lasix today, responded well. Urine output in excess of 1800 thru shift. Blood pressures have been within normal range. Afebrile Case management left paperwork at desk for oxygen at home upon discharge. WIll continue to monitor.
[2020-09-14 04:00] VITALS: BP 111/70; PULSE 84; RESP 18; TEMP 36.6; O2SAT 92
--- NOTE | 2020-09-14 04:44 | PC.NURSE ---
pt AxOx4, remained on 4L NC until going to bed, RT increased to 6L while resting in bed, O2 sats was 93% on 4L while in chair, 88-92% on 6L while in bed, respiration 18-20, fine crackles to right bases on auscultation, diminished t/o, no complaints of SOA or chest pain, does report poor appetite
[2020-09-14 05:00] VITALS: BMI 33.3
--- NOTE | 2020-09-14 06:00 | XR_ITS ---
PROCEDURE: XR CHEST PORTABLE CLINICAL HISTORY: covid pneumonia COMPARISON: No exams were available for comparison FINDINGS: The cardiomediastinal silhouette and pulmonary vascularity are within normal limits. Bilateral pneumonia once again noted right upper lobe right lower lobe left mid lower lung zone not significantly changed. Atelectatic changes are present in the right upper lobe slightly worse. No acute bony abnormalities. IMPRESSION: Bilateral pneumonia with slight increase in atelectatic change right upper lobe Dictated by: Frank Spencer MD 09/14/2020 06:59 Frank Spencer MD in [facility] 09/14/2020 06:59
[2020-09-14 06:25] VITALS: PULSE 84; PULSE 85; PULSE 91; PULSE 93; O2SAT 93
[2020-09-14 08:00] VITALS: BP 117/79; PULSE 89; RESP 20; TEMP 36.1; O2SAT 92
[2020-09-14 09:46] VITALS: O2SAT 92
--- NOTE | 2020-09-14 09:48 | PC.NURSE ---
Spoke with patient concerning sleep apnea that was witnessed by staff last night. We also discussed oxygen needs, since pt insists he is going home tonight. Oxygen weaned to 3 lpm nasal cannula. Will monitor oxygen neeeds.
[2020-09-14 12:00] VITALS: BP 120/79; PULSE 94; RESP 18; TEMP 36.2; O2SAT 91
[2020-09-14 13:06] LABS: Chloride 104 mmol/L (98-107); Potassium 4.6 mmoL/L (3.5-5.1); Sodium 136 mmol/L (136-145)
[2020-09-14 13:09] LABS: Alanine Aminotransferase 96 U/L (12-78); Albumin/Globulin Ratio 1.1 (1.1-1.8); Alkaline Phosphatase 65 U/L (38-126); Anion Gap 13.6 mEq/L (5-15); Aspartate Amino Transferase 42 U/L (17-59); Bilirubin,Total 0.9 mg/dl (0.2-1.3); Blood Urea Nitrogen 46 mg/dl (9-20); Carbon Dioxide 23 mmol/L (22.0-30.0); Creatinine Clearance Estimated 80 mL/min (50-200); Estimated Glomerular Filt Rate 41 ml/min (>60); GFR (African American) 50 ML/MIN (>60); Globulin 3.5 g/dL (1.3-3.2); Total Protein,Serum 7.5 g/dl (6.3-8.2)
[2020-09-14 13:10] LABS: Glucose 141 mg/dl (74-100)
--- NOTE | 2020-09-14 15:44 | HMH.DCSUM ---
General - General Admission date:: 09/08/20 Discharge date: 09/14/20 HPI HPI: 45-year-old male presented to the emergency department with difficulty breathing and generalized weakness after recently testing positive for covid. Patient states that he has been taking Tylenol and Zofran over the last 3 days, however symptoms not improving. He states that he has severe fatigue, soa and generalized weakness. He has had very poor appetite and poor oral intake due to nausea. Patient admitted for pneumonia due to covid. pulmonary consult Hospital Course Hospital Course: Patient was admitted to the Covid unit and seen in consultation with the pulmonary service. He made consistent clinical progress. Nursing staff sites no major concerns. Today the patient felt very much ready to leave. We have made arrangements for home oxygen. Objective Vital signs: Temp Pulse Resp BP Pulse Ox 97.2 F L 94 H 18 120/79 91 L 09/14/20 12:00 09/14/20 12:00 09/14/20 12:00 09/14/20 12:00 09/14/20 12:00 no acute distress, obese - *Routine HEENT Exam Head: Present: normocephalic Eye: Present: EOMI, PERRL ENT: Present: mucous membranes moist - *Routine Neck Exam Present: supple - *Routine Respiratory Exam Present: crackles - *Routine Cardiovascular Exam Present: RRR - *Routine Abdominal Exam Present: soft, normoactive bowel sounds. Absent: tenderness - *Routine Extremities Exam Absent: cyanosis, clubbing, edema - *Routine Skin Exam Present: warm. Absent: rash Results Labs on day of discharge: Labs from last 24 hours 09/14/20 12:50 Sodium 136 Potassium 4.6 Chloride 104 Carbon Dioxide 23 Anion Gap 13.6 BUN 46 H Creatinine 1.80 H Estimated Creat Clear 80 Estimated GFR 41 L Est GFR ( Amer) 50 L Glucose 141 H Calcium 9.0 Total Bilirubin 0.9 AST 42 ALT 96 H Alkaline Phosphatase 65 Total Protein 7.5 Albumin 4.0 D Globulin 3.5 H Albumin/Globulin Ratio 1.1 DS: Diagnosis - Discharge Diagnosis (1) Acute respiratory failure due to COVID-19 Status: Acute (2) Qeqzc-jq-nszhedt kidney injury Status: Acute (3) Hypertension Status: Acute (4) Exposure to COVID-19 virus Status: Acute (5) Obesity (BMI 30-39.9) Status: Acute Discharge Plan - Patient Discharge Instructions ACTIVITY: Continue current activity, Ambulate as tolerated Patient Instructions: DI for Pneumonia -- Adult, DI for Respiratory Failure, DI for Acute Kidney Injury, DI for COVID-19 (Suspected or Confirmed ), Preventing the Spread of Coronavirus Discharge Instructions - Follow up Plan Follow up with: Lamont Rodriguez [Primary Care Provider] - 09/18/20 Disposition: Home, Self-Jail Medications: Home Medications Medication Instructions Recorded Confirmed Type Atorvastatin Calcium [Lipitor 20mg 10 mg PO HS 09/02/20 09/08/20 History Tab] allopurinoL [Allopurinol 300mg 300 mg PO DAILY 09/02/20 09/08/20 History tablet] lisinopriL [Lisinopril 40mg Tablet] 60 mg PO DAILY 09/02/20 09/08/20 History Cholecalciferol (Vitamin D3) 2,000 unit PO DAILY 09/08/20 09/08/20 History [Vitamin D3 1,000 Unit Cap] ondansetron HCL [Ondansetron 4mg 4 mg PO TIDP PRN 09/08/20 09/09/20 History tab*] Prescriptions/Medication Reconciliation: Continued lisinopriL [Lisinopril 40mg Tablet] 60 mg PO DAILY Atorvastatin Calcium [Lipitor 20mg Tab] 10 mg PO HS allopurinoL [Allopurinol 300mg tablet] 300 mg PO DAILY Cholecalciferol (Vitamin D3) [Vitamin D3 1,000 Unit Cap] 2,000 unit PO DAILY ondansetron HCL [Ondansetron 4mg tab*] 4 mg PO TIDP PRN PRN Reason: Nausea - Problem Reconciliation Problems Reviewed?: Yes
--- NOTE | 2020-09-16 10:42 | SW/DCPLANNER ---
Patient information and order was faxed to [facility] over the weekend for patient to have home O2 and portable tank. I have spoke with Tracy at [facility] and she has stated that patient information was reviewed and all is fine and was delivered over the weekend for this patient. Patient discharged home over the weekend.
== END 2020-09-14 17:01 | disposition home or self-care (01) | DRG 177 ==
LOC: ER 16:44 → 2ND 17:13 → ICU 09-09 22:39
PROVIDERS: Internal Medicine Pulmonary Disease; Nurse Practitioner Family; Admitting Provider Emergency Medicine; Emergency Provider Emergency Medicine; PCP Internal Medicine; Visit Provider Emergency Medicine
DX: U07.1 COVID-19 (principal); J12.82 Pneumonia due to coronavirus disease 2019; J96.01 Acute respiratory failure with hypoxia; N17.9 Acute kidney failure, unspecified; I12.9 Hypertensive chronic kidney disease with stage 1 through stage 4 chronic kidney disease, or unspecified chronic kidney disease; N18.31 Chronic kidney disease, stage 3a; Z88.0 Allergy status to penicillin; Z88.1 Allergy status to other antibiotic agents; Z79.899 Other long term (current) drug therapy
CPT/HCPCS: 36415; 71045; 80053; 82803; 84484; 85007; 85025; 85378; 87070; 87081; 87205; 93005; 94640; 94760; 94761; 96365; 96375; 99284; J1956

== ENCOUNTER → 2020-09-30 16:10 | Outpatient (CLI) | payer BC, SELFPAY | PROVIDERS: PCP Internal Medicine; Visit Provider Internal Medicine | DX: G47.30 Sleep apnea, unspecified (principal); I10 Essential (primary) hypertension; R06.83 Snoring; E66.9 Obesity, unspecified; G47.33 Obstructive sleep apnea (adult) (pediatric) | CPT/HCPCS: G0399 ==

== ENCOUNTER → 2020-11-28 13:04 | Outpatient (CLI) | payer BC, SELFPAY ==
--- NOTE | 2020-11-28 13:07 | XR_ITS ---
PROCEDURE: XR KNEE RT 4V CLINICAL INDICATION: RT knee injury Knee pain COMPARISON: CR [id number] [id number] from 09/15/2015 FINDINGS: No obvious fracture or dislocation. There is a faint calcific density along the inferior aspect of the patella and may be related to developing osteophyte. This was not readily apparent on 09/15/2015 The joint spaces are well-preserved. No significant degenerative/arthritic changes. No erosive changes evident. Other findings:None. IMPRESSION: Calcific density along the inferior aspect of the patella which may be due to an area spurring or exostosis. An avulsion injuries felt to be less likely but not totally excluded. Please correlate as the patient's area of pain and tenderness. Dictated by: Frank Spencer MD 11/28/2020 13:59 Frank Spencer MD in [place] 11/28/2020 13:59
== END ==
PROVIDERS: PCP Internal Medicine; Visit Provider Orthopaedic Surgery
DX: M25.561 Pain in right knee (principal)
CPT/HCPCS: 73564

== ENCOUNTER → 2020-12-11 15:00 | Outpatient (CLI) | payer BC, SELFPAY ==
--- NOTE | 2020-12-11 15:00 | MR_ITS ---
PROCEDURE: MR KNEE RT WO CON CLINICAL INDICATION: RT knee pain Pt c/o medial rt knee pain with instability worse when bending and extending x4wks. COMPARISON: CR XR KNEE RT 4V from 11/28/2020 TECHNIQUE: Routine multiplanar multi echo sequences are performed without gadolinium enhancement. FINDINGS: The cruciate ligaments, collateral ligaments, and quadriceps tendon has an unremarkable appearance. There is slight increased in T2 signal involving the patellar tendon proximally and distally and may be due to tendinopathy/tendinosis. There is a well-circumscribed calcification in the proximal patellar tendon at 4 mm. A horizontal nondisplaced tear involves the posterior horn of the medial meniscus. The tear is slightly complex extending both superior and inferior surface of the meniscus. There is some mild bone marrow edema of the medial tibial plateau posteriorly.. Small area of loculated fluid noted along the posterior aspect of the tibia centrally and slightly medially. There is minimal spurring of the posterior patella. Patellar cartilage is preserved. Mild edematous changes are present along the medial aspect of the distal femur and medial to the medial meniscus. IMPRESSION: Horizontal tear involves the posterior horn of the medial meniscus with some complex features. Small loculated knee joint effusion. Minimal bone bruise of the medial aspect of the proximal tibia posteriorly Dictated by: Frank Spencer MD 12/13/2020 10:37 Frank Spencer MD in [facility] 12/13/2020 10:37
== END ==
PROVIDERS: PCP Internal Medicine; Visit Provider Orthopaedic Surgery
DX: M25.561 Pain in right knee (principal)
CPT/HCPCS: 73721

== ENCOUNTER → 2020-12-24 07:18 | Outpatient (CLI) | payer BC, SELFPAY ==
[2020-12-24 08:42] LABS: Basophils # 0.1 K/mm3 (0-0.2); Basophils % 0.9 % (0.1-2.0); Eosinophils # 0.2 K/mm3 (0.0-0.4); Eosinophils % 2.8 % (0.1-12.0); Hematocrit 40.8 % (42.0-52.0); Hemoglobin 13.6 g/dL (14.1-18.0); Lymphocytes # 2.1 K/mm3 (0.7-4.5); Lymphocytes % 27.6 % (10-50); Mean Corpuscular HGB Conc 33.3 g/dL (31.8-35.4); Mean Corpuscular Volume 87.3 fl (80-94); Mean Platelet Volume 7.9 fl (7.4-10.4); Monocytes # 0.6 K/mm3 (0.1-1.0); Monocytes % 7.9 % (1.7-9.3); Neutrophils # 4.5 K/mm3 (1.8-7.8); Neutrophils % 60.9 % (37.0-80.0); Platelet Count 280 K/mm3 (142-424); Red Blood Count 4.68 M/mm3 (4.60-6.20); Red Cell Distribution Width 14.2 % (11.5-17.5); White Blood Count 7.4 K/mm3 (4.8-10.8)
[2020-12-24 08:56] LABS: Chloride 108 mmol/L (98-107); Potassium 4.4 mmoL/L (3.5-5.1); Sodium 140 mmol/L (136-145)
[2020-12-24 08:59] LABS: Anion Gap 13.4 mEq/L (5-15); Blood Urea Nitrogen 22 mg/dl (9-20); Calcium 9.4 mg/dl (8.4-10.2); Carbon Dioxide 23 mmol/L (22.0-30.0); Estimated Glomerular Filt Rate 41 ml/min (>60); GFR (African American) 50 ML/MIN (>60); Glucose 104 mg/dl (74-100)
[2020-12-24 09:38] LABS: Coronavirus 19 IgG Antibody Positive (Negative); Coronavirus 19 IgM Antibody Negative (Negative)
== END ==
PROVIDERS: Visit Provider Orthopaedic Surgery
DX: Z01.818 Encounter for other preprocedural examination (principal); Z20.822 Contact with and (suspected) exposure to COVID-19; M25.561 Pain in right knee; I10 Essential (primary) hypertension
CPT/HCPCS: 36415; 80048; 85025; 86328

== ENCOUNTER 2020-12-26 06:59 | Day surgery (SDC) | payer BC, SELFPAY ==
[2020-12-24 09:51] VITALS: BMI 34.8
[2020-12-26] VITALS (11 sets, daily range): BP systolic 108–179; BP diastolic 74–96; PULSE 83–102; RESP 16–18; TEMP 36.2–43; O2SAT 93–96
--- NOTE | 2020-12-26 09:30 | HMH.ANESCL ---
[facility] Anesthesia Checklist - Patient Identification Patient Identification: Arm Band - Structural Data Admitted From: Home Planned Operative Procedure/s: Right Knee Arthroscopy Consent for Planned Operative Procedure(s) Verified: Yes Verified Documents: Surgical Consent, History and Physical - NPO Status Verified Time NPO: 00:00 - Additional verifications Anesthesia Reactions: No Hx Blood Transfusions: No Blood Transfusion Reaction: No - Airway Assessment C-Spine Mobility Assessed: Yes (mp2) TMJ Mobility Assessed: Yes Dentition: Good Dentition - Neurological Assessment Level of Consciousness: Awake, Alert - Anesthesia Plan Anesthesia Risk discussed: Yes Anesthesia Plan: Verified ASA Class: III Anesthesia Type: General [facility] History I have reviewed the patient's past medical history: Yes Medical History: Reports:: Hyperlipidemia, Hypertension, Lung Disease (nanci-cpap hs), Renal Disease Denies:: Cancer, Diabetes Mellitus Type 1, Diabetes Mellitus Type 2, Internal Pacemaker, MRSA, Seizures *Have you ever received a pneumonia vaccine?: No *Have you received a flu vaccine this season?: No Other Medical History: Denies: Blood Transfusion Reaction Anesthesia experience/problems:: nac Laterality Cases: Right: Arthroscopy Shoulder Other Surgeries: Yes: Other. No: Pacemaker Amputation: No Fractures: No - *Social History Last grade of school completed: Advanced degree Smoking Status: Never smoker Alcohol Intake: never Substance Use Type: denies use *Occupational Status:: employed Housing: house Household Members: spouse, family *Travel in the last 8 weeks: None Family Hx:: No significant family history
--- NOTE | 2020-12-26 10:38 | HMH.ANESI ---
[facility] Anesthesia Record Part I Intake, IV Amount: 1,100 Estimated blood loss (mL): 5 Urine output (mL): 0 Blood Pressure: 108/79 SaO2: 93 Pulse Rate: 97 Respiratory Rate: 16 Temperature: 97.1 F Patient is:: Drowsy, Stable Stable to PACU at:: 10:30
--- NOTE | 2020-12-26 17:03 | HMH.OPNOTE ---
Date of procedure: 12/26/20 Pre-op Diagnosis:: R knee medial meniscus tear Post-op Diagnosis:: R knee medial meniscus tear Procedure performed:: R knee arthroscopy, partial medial meniscectomy Surgeon:: Jill Wharton MD Information Systems Security Manager(s):: Tarsha Clements MEDICAL TRANSCRIPTION RADIOLOGY:: Damián John Anesthesia: GETA, local Estimated blood loss (mL): 5 Clinical Note:: 45-year-old gentleman with acute right knee pain x6 weeks. He was mowing the yard, which is less than 1 acre and it takes him around 1 hour to push mow. He does not recall stepping in a hole, twisting the knee or feeling a pop, and the surface is fairly flat. After he stopped, however, he had significant pain in the knee that has not improved despite rest and ice. He is unable to take NSAIDs due to stage III CKD. He does take Tylenol. Pain is primarily over the medial aspect of the knee with occasional popping but no karen locking or giving way. He has never injured this knee before had any previous surgery on this knee. 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 Non-smoker, BMI 35. He suffers from hypertension and was infected with COVID-19 in August of this year. MRI revealed a tear of the posterior horn of the medial meniscus; minimal degenerative changes on XR/MRI. I discussed treatment options with the patient, including both operative and non-operative treatments, and the patient would like to proceed with surgery at this time. I discussed the possibility of meniscus repair if the tear appears amenable to this at the time of surgery, as well as the possibility of partial meniscectomy. I discussed the risks of surgery with the patient, including but not limited to: bleeding, infection, bruising of the knee, neurovascular damage, intra-operative MCL injury or fracture, risk of post-operative tourniquet pain, persistent pain and/or limp despite surgery. The patient vocalized understanding and provided informed consent for the procedure. Operative findings:: tear of posterior horn medial meniscus R knee, with both horizontal and radial components Operative note:: The patient was identified in preoperative holding and the R knee signed by myself. Informed consent was reviewed and confirmed with the patient, all questions answered. Pre-operative laboratory testing was reviewed and found to be within acceptable limits. The patient was then taken to the OR and placed supine on the operative table. 900 md clindamycin was infused and general anesthesia induced. The R leg was then placed in an arthroscopic leg vincent with a nonsterile tourniquet on the upper thigh. The leg was then prepped and draped in the usual sterile fashion for knee arthroscopy. Timeout was performed, identifying the correct patient, correct procedure, and correct site. The procedure was begun by using an 11 blade to establish standard anterolateral and anteromedial portals using normal anatomic landmarks. Tourniquet was not inflated. 30 degree arthroscope was inserted via the lateral portal into the suprapatellar pouch with the knee in extension. A superolateral outflow portal was then established under direct visualization with tubing connected to gravity. The patellofemoral joint was examined first and no focal defects seen across both medial and lateral facets of the patella. 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 No plica, hypertrophic synovium or loose bodies were seen in the suprapatellar pouch. Medial and lateral gutters were checked and were seen to be free of loose bodies. I next dropped down into the medial compartment, where the patient's pathology appears to be confined. The weightbearing portion of the medial femoral condyle had no focal chondral defectis, no wear; it was in good condition. The medial meniscus was examined next and a medium-sized tear of the posterior horn was seen, with horizontal and radial components. This was a bird-beak type tear involving the white
--- NOTE | 2020-12-27 09:27 | HMH.ANESII ---
[facility] Anesthesia Record Part II Discharge Time: 11:30 Destination: Surgical Day Care (OP Surgery) PACU nurse assessment reviewed?: Yes Patient Condition:: Good Anesthesia Complications:: None Swallowing reflex intact?: Yes Cyanosis?: No Blood Pressure: 135/87 Pulse Rate: 90 Temperature: 97.4 F Mental Status: Alert & Oriented Pain level:: 0 Nausea and/or vomitting:: None Intake, IV Amount: 0
[2020-12-27 09:28] VITALS: BP 135/87; PULSE 90; TEMP 36.3
== END 2020-12-26 11:43 | disposition home or self-care (01) ==
LOC: OR 07:00
PROVIDERS: PCP Internal Medicine; Visit Provider Orthopaedic Surgery
PROC: (CPT 29870; principal; 2020-12-26 08:30)
DX: S83.231A Complex tear of medial meniscus, current injury, right knee, initial encounter (principal); X58.XXXA Exposure to other specified factors, initial encounter; Z86.16 Personal history of COVID-19; N18.30 Chronic kidney disease, stage 3 unspecified; I12.9 Hypertensive chronic kidney disease with stage 1 through stage 4 chronic kidney disease, or unspecified chronic kidney disease; Z79.899 Other long term (current) drug therapy
CPT/HCPCS: 29881; 96374; J2405

== ENCOUNTER 2021-01-23 17:00 | Outpatient (RCR) | payer BC, SELFPAY ==
--- NOTE | 2021-01-13 15:59 | HMH.PTOPEV ---
PT Outpatient Evaluation Rehab PT Outpatient Evaluation Start: 01/13/21 15:18 Freq: Status: Active Protocol: Document 01/13/21 15:19 KEYSHA (Rec: 01/13/21 15:58 KEYSHA [id number]) Electronically Signed By Santosh Schmid, PT 01/13/21 15:19 Outpatient Therapy Subjective History Subjective History Pt presents s/p R knee scope w /partial medial meniscectomy sx. ~2weeks ago. Pt reports R knee 'seems to be recovering well, getting a little stronger every couple days'. Pt reports chronic R knee pain with exacerbation mowing the yard in early November, 'after that it got bad'. Pt reports currrently only 'mild' medial R knee discomfort, and tightness. Chief Complaint Pain,Stiff,Swelling Symptom Type Ache,Dull Symptoms Relieved By Rest/Positioning,Ice Symptoms Aggravated By Physical Activity,Walking Prior Functional Limitations Squatting,Stairs Current Functional Limitations Squatting,Stairs Symptom Description Constant but Variable Level of pain today (0-10) 2 Pain scale - at its best (0-10) 1 Pain scale - at its worst (0-10) 4 Hip/Knee Eval Gait Observation General Gait Pattern Observation No Deviations/Normal Assistive Device Assistive Devices None / NA Palpation Tenderness right Knee Palpation Finding Tenderness Knee Palpation Overall Comment 1/ medial jt line MMT Hip Flexion Strength Grade 5 Normal Hip Abduction Strength Grade 4 Good Hip Adduction Strength Grade 4 Good Hip Extension Strength Grade 4 Good Hip External Rotation Strength Grade 5 Normal Hip Internal Rotation Strength Grade 5 Normal Knee Extension Strength Grade 5 Normal Knee Flexion Strength Grade 4 Good ROM Knee Flexion Active Range of Motion ( 0-115 degrees) Knee ROM Limitations Soft Tissue Tightness Effusion joint effusion knee exam standard right Mid - Patellar Circumerential Measure ( 44.5 cm) Outpatient Therapy Assessment Impairments Problems/Impairmments Palpation Tenderness,Impaired Range of Motion,Impaired Strength,Impaired Stair Climbing,Impaired Squatting, Subjective C/O Pain,Impaired Self Care/Self Management Prognosis Rehab Potential Good Clinical Impression Consistent with Diagnosi
== END 2021-01-23 17:05 | disposition home or self-care (01) ==
LOC: PT 17:00
PROVIDERS: PCP Internal Medicine; Visit Provider Orthopaedic Surgery
DX: S83.231D Complex tear of medial meniscus, current injury, right knee, subsequent encounter (principal)
CPT/HCPCS: 97010; 97014; 97110; 97163; G0283

== ENCOUNTER → 2021-01-31 10:03 | Outpatient (CLI) | payer BC, SELFPAY ==
[2021-01-31 11:02] LABS: Chloride 106 mmol/L (98-107); Sodium 140 mmol/L (136-145)
[2021-01-31 11:03] LABS: Potassium 4.5 mmoL/L (3.5-5.1)
[2021-01-31 11:05] LABS: Alanine Aminotransferase 31 U/L (12-78); Albumin Level 4.8 g/dl (3.5-5.0); Alkaline Phosphatase 64 U/L (38-126); Anion Gap 14.5 mEq/L (5-15); Aspartate Amino Transferase 28 U/L (17-59); Bilirubin,Total 0.6 mg/dl (0.2-1.3); Blood Urea Nitrogen 20 mg/dl (9-20); Carbon Dioxide 24 mmol/L (22.0-30.0); Cholesterol 158 mg/dl (140-200); Estimated Glomerular Filt Rate 36 ml/min (>60); GFR (African American) 44 ML/MIN (>60); Triglycerides 267 mg/dl (30-150); VLDL Cholesterol 53 mg/dL (0-40)
[2021-01-31 11:06] LABS: Albumin/Globulin Ratio 1.7 (1.1-1.8); Calcium 9.4 mg/dl (8.4-10.2); Chol/HDL Ratio 4.4 (1-3.5); Globulin 2.9 g/dL (1.3-3.2); Glucose 106 mg/dl (74-100); HDL Cholesterol 36 mg/dl (40-60); Total Protein,Serum 7.7 g/dl (6.3-8.2)
[2021-01-31 11:17] LABS: Direct LDL Cholesterol 70.27 mg/dL (100-129)
[2021-01-31 11:31] LABS: Uric Acid 4.9 mg/dl (3.5-8.5)
== END ==
PROVIDERS: Visit Provider Internal Medicine
DX: I10 Essential (primary) hypertension (principal); E78.5 Hyperlipidemia, unspecified; E79.0 Hyperuricemia without signs of inflammatory arthritis and tophaceous disease
CPT/HCPCS: 36415; 80053; 80061; 84550

== ENCOUNTER → 2021-08-06 10:11 | Outpatient (CLI) | payer BC, SELFPAY ==
[2021-08-06 10:41] LABS: Basophils # 0.1 K/mm3 (0-0.2); Basophils % 0.8 % (0.1-2.0); Eosinophils # 0.2 K/mm3 (0.0-0.4); Eosinophils % 3.2 % (0.1-12.0); Hematocrit 43.9 % (42.0-52.0); Hemoglobin 15.2 g/dL (14.1-18.0); Lymphocytes % 28.7 % (10-50); Mean Corpuscular HGB Conc 34.5 g/dL (31.8-35.4); Mean Corpuscular Volume 87.1 fl (80-94); Mean Platelet Volume 7.6 fl (7.4-10.4); Monocytes # 0.4 K/mm3 (0.1-1.0); Monocytes % 5.2 % (1.7-9.3); Neutrophils # 4.4 K/mm3 (1.8-7.8); Neutrophils % 61.9 % (37.0-80.0); Platelet Count 333 K/mm3 (142-424); Red Blood Count 5.05 M/mm3 (4.60-6.20); Red Cell Distribution Width 14.2 % (11.5-17.5)
[2021-08-06 11:23] LABS: Alanine Aminotransferase 28 U/L (12-78); Albumin Level 4.7 g/dl (3.5-5.0); Albumin/Globulin Ratio 1.7 (1.1-1.8); Alkaline Phosphatase 60 U/L (38-126); Anion Gap 11.8 mEq/L (5-15); Aspartate Amino Transferase 34 U/L (17-59); Bilirubin,Total 0.6 mg/dl (0.2-1.3); Blood Urea Nitrogen 20 mg/dl (9-20); Calcium 9.8 mg/dl (8.4-10.2); Carbon Dioxide 26 mmol/L (22.0-30.0); Chloride 106 mmol/L (98-107); Cholesterol 143 mg/dl (140-200); Estimated Glomerular Filt Rate 41 ml/min (>60); GFR (African American) 50 ML/MIN (>60); Globulin 2.8 g/dL (1.3-3.2); Glucose 98 mg/dl (74-100); HDL Cholesterol 36 mg/dl (40-60); Potassium 4.8 mmoL/L (3.5-5.1); Sodium 139 mmol/L (136-145); Total Protein,Serum 7.5 g/dl (6.3-8.2); Triglycerides 231 mg/dl (30-150); Uric Acid 5.6 mg/dl (3.5-8.5); VLDL Cholesterol 46 mg/dL (0-40)
[2021-08-06 11:33] LABS: Direct LDL Cholesterol 68.31 mg/dL (100-129)
[2021-08-06 11:56] LABS: Thyroid Stimulating Hormone 3.31 uIU/mL (0.465-4.68)
[2021-08-06 12:31] LABS: Vitamin B12 382 pg/mL (239-931)
[2021-08-06 12:38] LABS: Folate 7.81 ng/mL
== END ==
PROVIDERS: Visit Provider Internal Medicine
DX: I10 Essential (primary) hypertension (principal); E78.5 Hyperlipidemia, unspecified; E79.0 Hyperuricemia without signs of inflammatory arthritis and tophaceous disease; E66.09 Other obesity due to excess calories; Z68.34 Body mass index [BMI] 34.0-34.9, adult
CPT/HCPCS: 36415; 80053; 80061; 82607; 82746; 84443; 84550; 85025

== ENCOUNTER → 2022-02-06 14:58 | Outpatient (CLI) | payer BC, SELFPAY ==
[2022-02-06 15:50] LABS: Chloride 103 mmol/L (98-107); Potassium 4.8 mmoL/L (3.5-5.1); Sodium 138 mmol/L (136-145)
[2022-02-06 15:52] LABS: Alanine Aminotransferase 33 U/L (12-78); Aspartate Amino Transferase 33 U/L (17-59); Blood Urea Nitrogen 24 mg/dl (9-20); Estimated Glomerular Filt Rate 34 ml/min (>60); GFR (African American) 42 ML/MIN (>60)
[2022-02-06 15:53] LABS: Albumin Level 4.6 g/dl (3.5-5.0); Albumin/Globulin Ratio 1.6 (1.1-1.8); Alkaline Phosphatase 59 U/L (38-126); Anion Gap 13.8 mEq/L (5-15); Bilirubin,Total 0.6 mg/dl (0.2-1.3); Calcium 9.5 mg/dl (8.4-10.2); Carbon Dioxide 26 mmol/L (22.0-30.0); Chol/HDL Ratio 4.4 (1-3.5); Cholesterol 140 mg/dl (140-200); Globulin 2.8 g/dL (1.3-3.2); Glucose 92 mg/dl (74-100); HDL Cholesterol 32 mg/dl (40-60); Total Protein,Serum 7.4 g/dl (6.3-8.2); Triglycerides 194 mg/dl (30-150); VLDL Cholesterol 39 mg/dL (0-40)
[2022-02-06 16:04] LABS: Direct LDL Cholesterol 66.15 mg/dL (100-129)
== END ==
PROVIDERS: PCP Internal Medicine; Visit Provider Internal Medicine
DX: E88.01 Alpha-1-antitrypsin deficiency (principal); I10 Essential (primary) hypertension; E78.5 Hyperlipidemia, unspecified; N18.30 Chronic kidney disease, stage 3 unspecified
CPT/HCPCS: 80053; 80061

== ENCOUNTER → 2022-08-07 10:21 | Outpatient (CLI) | payer BC, SELFPAY ==
[2022-08-07 12:05] LABS: Basophils # 0.1 K/mm3 (0-0.2); Basophils % 1.3 % (0.1-2.0); Eosinophils # 0.2 K/mm3 (0.0-0.4); Eosinophils % 2.6 % (0.1-12.0); Hematocrit 45.5 % (42.0-52.0); Hemoglobin 14.6 g/dL (14.1-18.0); Lymphocytes # 2.2 K/mm3 (0.7-4.5); Lymphocytes % 29.7 % (10-50); Mean Corpuscular HGB Conc 32.1 g/dL (31.8-35.4); Mean Corpuscular Hemoglobin 28.8 pg (27.0-31.2); Mean Corpuscular Volume 89.7 fl (80-94); Mean Platelet Volume 8.2 fl (7.4-10.4); Monocytes # 0.5 K/mm3 (0.1-1.0); Monocytes % 6.9 % (1.7-9.3); Neutrophils # 4.4 K/mm3 (1.8-7.8); Neutrophils % 59.5 % (37.0-80.0); Platelet Count 322 K/mm3 (142-424); Red Blood Count 5.07 M/mm3 (4.60-6.20); White Blood Count 7.4 K/mm3 (4.8-10.8)
[2022-08-07 12:35] LABS: Alanine Aminotransferase 27 U/L (12-78); Albumin Level 4.6 g/dl (3.5-5.0); Albumin/Globulin Ratio 1.7 (1.1-1.8); Alkaline Phosphatase 73 U/L (38-126); Anion Gap 15.7 mEq/L (5-15); Aspartate Amino Transferase 29 U/L (17-59); Bilirubin,Total 0.5 mg/dl (0.2-1.3); Blood Urea Nitrogen 23 mg/dl (9-20); Calcium 9.6 mg/dl (8.4-10.2); Carbon Dioxide 25 mmol/L (22.0-30.0); Chloride 106 mmol/L (98-107); Chol/HDL Ratio 4.9 (1-3.5); Cholesterol 138 mg/dl (140-200); Estimated Glomerular Filt Rate 31 ml/min (>60); GFR (African American) 37 ML/MIN (>60); Globulin 2.7 g/dL (1.3-3.2); Glucose 96 mg/dl (74-100); HDL Cholesterol 28 mg/dl (40-60); Potassium 4.7 mmoL/L (3.5-5.1); Sodium 142 mmol/L (136-145); Total Protein,Serum 7.3 g/dl (6.3-8.2); Triglycerides 237 mg/dl (30-150); Uric Acid 4.7 mg/dl (3.5-8.5); VLDL Cholesterol 47 mg/dL (0-40)
[2022-08-07 12:46] LABS: Direct LDL Cholesterol 63.13 mg/dL (100-129)
== END ==
PROVIDERS: PCP Internal Medicine; Visit Provider Internal Medicine
DX: I10 Essential (primary) hypertension (principal); E78.5 Hyperlipidemia, unspecified; E79.0 Hyperuricemia without signs of inflammatory arthritis and tophaceous disease; M10.9 Gout, unspecified
CPT/HCPCS: 36415; 80053; 80061; 84550; 85025

== ENCOUNTER → 2022-11-06 10:05 | Outpatient (CLI) | payer BC, SELFPAY ==
[2022-11-06 11:09] LABS: Alanine Aminotransferase 22 U/L (12-78); Albumin Level 4.7 g/dl (3.5-5.0); Alkaline Phosphatase 74 U/L (38-126); Anion Gap 14.6 mEq/L (5-15); Aspartate Amino Transferase 21 U/L (17-59); Bilirubin,Total 0.8 mg/dl (0.2-1.3); Blood Urea Nitrogen 18 mg/dl (9-20); Calcium 9.1 mg/dl (8.4-10.2); Carbon Dioxide 27 mmol/L (22.0-30.0); Chloride 101 mmol/L (98-107); Cholesterol 80 mg/dl (140-200); Estimated Glomerular Filt Rate 34 ml/min (>60); GFR (African American) 41 ML/MIN (>60); Globulin 2.4 g/dL (1.3-3.2); Glucose 91 mg/dl (74-100); HDL Cholesterol 27 mg/dl (40-60); Potassium 4.6 mmoL/L (3.5-5.1); Sodium 138 mmol/L (136-145); Total Protein,Serum 7.1 g/dl (6.3-8.2); Triglycerides 107 mg/dl (30-150); VLDL Cholesterol 21 mg/dL (0-40)
[2022-11-06 11:20] LABS: Direct LDL Cholesterol 39.93 mg/dL (100-129)
== END ==
PROVIDERS: PCP Internal Medicine; Visit Provider Internal Medicine
DX: I10 Essential (primary) hypertension (principal); E78.5 Hyperlipidemia, unspecified; N19 Unspecified kidney failure; E66.09 Other obesity due to excess calories; Z68.34 Body mass index [BMI] 34.0-34.9, adult
CPT/HCPCS: 36415; 80053; 80061

== ENCOUNTER → 2023-02-26 13:08 | Outpatient (CLI) | payer BC, SELFPAY ==
[2023-02-26 15:57] LABS: Basophils % 0.6 % (0.1-2.0); Eosinophils # 0.1 K/mm3 (0.0-0.4); Eosinophils % 2.1 % (0.1-12.0); Hematocrit 44.5 % (42.0-52.0); Hemoglobin 14.7 g/dL (14.1-18.0); Lymphocytes # 1.7 K/mm3 (0.7-4.5); Lymphocytes % 31.4 % (10-50); Mean Corpuscular HGB Conc 32.9 g/dL (31.8-35.4); Mean Corpuscular Hemoglobin 28.8 pg (27.0-31.2); Mean Corpuscular Volume 87.5 fl (80-94); Mean Platelet Volume 8.8 fl (7.4-10.4); Monocytes # 0.5 K/mm3 (0.1-1.0); Monocytes % 9.1 % (1.7-9.3); Neutrophils % 56.8 % (37.0-80.0); Platelet Count 299 K/mm3 (142-424); Red Blood Count 5.09 M/mm3 (4.60-6.20); Red Cell Distribution Width 13.8 % (11.5-17.5); White Blood Count 5.3 K/mm3 (4.8-10.8)
[2023-02-26 16:27] LABS: Alanine Aminotransferase 16 U/L (12-78); Albumin Level 4.7 g/dl (3.5-5.0); Albumin/Globulin Ratio 1.9 (1.1-1.8); Alkaline Phosphatase 69 U/L (38-126); Anion Gap 15.7 mEq/L (5-15); Aspartate Amino Transferase 23 U/L (17-59); Bilirubin,Total 0.8 mg/dl (0.2-1.3); Blood Urea Nitrogen 16 mg/dl (9-20); Calcium 9.1 mg/dl (8.4-10.2); Carbon Dioxide 26 mmol/L (22.0-30.0); Chloride 104 mmol/L (98-107); Estimated Glomerular Filt Rate 38 ml/min (>60); GFR (African American) 46 ML/MIN (>60); Globulin 2.5 g/dL (1.3-3.2); Glucose 70 mg/dl (74-100); Potassium 4.7 mmoL/L (3.5-5.1); Sodium 141 mmol/L (136-145); Total Protein,Serum 7.2 g/dl (6.3-8.2); Uric Acid 5.7 mg/dl (3.5-8.5)
== END ==
PROVIDERS: PCP Internal Medicine; Visit Provider Internal Medicine
DX: I10 Essential (primary) hypertension (principal); E78.5 Hyperlipidemia, unspecified; N18.30 Chronic kidney disease, stage 3 unspecified; E88.81 Metabolic syndrome and other insulin resistance; E79.0 Hyperuricemia without signs of inflammatory arthritis and tophaceous disease; E66.09 Other obesity due to excess calories; Z68.34 Body mass index [BMI] 34.0-34.9, adult
CPT/HCPCS: 80053; 84550; 85025

== ENCOUNTER 2023-08-30 15:10 | Outpatient (CLI) | payer BC, SELFPAY ==
[2023-08-30 15:56] LABS: Alanine Aminotransferase 93 U/L (12-78); Albumin Level 4.1 g/dl (3.5-5.0); Albumin/Globulin Ratio 1.6 (1.1-1.8); Alkaline Phosphatase 50 U/L (38-126); Anion Gap 11.3 mEq/L (5-15); Aspartate Amino Transferase 52 U/L (17-59); Bilirubin,Total 0.6 mg/dl (0.2-1.3); Blood Urea Nitrogen 17 mg/dl (9-20); Calcium 8.3 mg/dl (8.4-10.2); Carbon Dioxide 26 mmol/L (22.0-30.0); Chloride 106 mmol/L (98-107); Chol/HDL Ratio 4.6 (1-3.5); Cholesterol 165 mg/dl (140-200); Estimated Glomerular Filt Rate 36 ml/min (>60); GFR (African American) 44 ML/MIN (>60); Globulin 2.5 g/dL (1.3-3.2); Glucose 85 mg/dl (74-100); HDL Cholesterol 36 mg/dl (40-60); Potassium 4.3 mmoL/L (3.5-5.1); Sodium 139 mmol/L (136-145); Total Protein,Serum 6.6 g/dl (6.3-8.2); Triglycerides 148 mg/dl (30-150); VLDL Cholesterol 30 mg/dL (0-40)
[2023-08-30 16:08] LABS: Direct LDL Cholesterol 89.57 mg/dL (100-129)
== END 2023-08-30 23:59 ==
LOC: LAB.DROPOF 15:11
PROVIDERS: PCP Internal Medicine; Visit Provider Internal Medicine
DX: E78.5 Hyperlipidemia, unspecified (principal); E79.0 Hyperuricemia without signs of inflammatory arthritis and tophaceous disease; I10 Essential (primary) hypertension; N19 Unspecified kidney failure; E66.09 Other obesity due to excess calories
CPT/HCPCS: 80053; 80061

== ENCOUNTER 2024-12-25 09:45 | Outpatient (CLI) | payer BC, SELFPAY ==
[2024-12-25 17:11] LABS: Basophils # 0.1 K/mm3 (0-0.2); Basophils % 1.4 % (0.1-2.0); Eosinophils # 0.2 Kmm3 (0.0-0.4); Hematocrit 45.4 % (42.0-52.0); Hemoglobin 14.9 g/dL (14.1-18.0); Lymphocytes # 1.8 K/mm3 (0.7-4.5); Lymphocytes % 29.6 % (10-50); Mean Corpuscular HGB Conc 32.8 g/dL (31.8-35.4); Mean Corpuscular Hemoglobin 29.2 pg (27.0-31.2); Mean Corpuscular Volume 88.8 fl (80-94); Mean Platelet Volume 10.2 fl (7.4-10.4); Monocytes # 0.7 K/mm3 (0.1-1.0); Monocytes % 11.3 % (1.7-9.3); Neutrophils # 3.2 K/mm3 (1.8-7.8); Nucleated Red Blood Cells # 0 10^3/uL; Nucleated Red Blood Cells % 0 %; Platelet Count 277 K/mm3 (142-424); Red Blood Count 5.11 M/mm3 (4.60-6.20); Red Cell Distribution Width 12.8 % (11.5-17.5); White Blood Count 5.9 K/mm3 (4.8-10.8)
[2024-12-25 17:32] LABS: Albumin Level 4.5 g/dl (3.5-5.0); Chloride 107 mmol/L (98-107); Sodium 139 mmol/L (136-145)
[2024-12-25 17:33] LABS: Potassium 4.5 mmoL/L (3.5-5.1)
[2024-12-25 17:35] LABS: Alanine Aminotransferase 88 U/L (12-78); Anion Gap 11.5 mEq/L (5-15); Aspartate Amino Transferase 48 U/L (17-59); Blood Urea Nitrogen 21 mg/dl (9-20); Carbon Dioxide 25 mmol/L (22.0-30.0); Estimated Glomerular Filt Rate 32 ml/min (>60); GFR (African American) 39 ML/MIN (>60)
[2024-12-25 17:36] LABS: Albumin/Globulin Ratio 1.9 (1.1-1.8); Alkaline Phosphatase 51 U/L (38-126); Bilirubin,Total 0.8 mg/dl (0.2-1.3); Calcium 9.2 mg/dl (8.4-10.2); Chol/HDL Ratio 3.9 (1-3.5); Cholesterol 159 mg/dl (140-200); Globulin 2.4 g/dL (1.3-3.2); Glucose 84 mg/dl (74-100); HDL Cholesterol 41 mg/dl (40-60); Total Protein,Serum 6.9 g/dl (6.3-8.2); Triglycerides 180 mg/dl (30-150); VLDL Cholesterol 36 mg/dL (0-40)
[2024-12-25 17:47] LABS: Direct LDL Cholesterol 78.16 mg/dL (100-129)
== END 2024-12-25 23:59 | disposition home or self-care (01) ==
LOC: LAB.DROPOF 12-26 08:37
PROVIDERS: PCP Internal Medicine; Visit Provider Internal Medicine
DX: E78.5 Hyperlipidemia, unspecified (principal); I12.9 Hypertensive chronic kidney disease with stage 1 through stage 4 chronic kidney disease, or unspecified chronic kidney disease; N18.9 Chronic kidney disease, unspecified
CPT/HCPCS: 80053; 80061; 85025

== ENCOUNTER 2025-07-03 17:10 | Outpatient (CLI) | payer BC, SELFPAY ==
[2025-07-03 16:41] LABS: Alanine Aminotransferase 31 U/L (12-78); Albumin Level 4.7 g/dl (3.5-5.0); Albumin/Globulin Ratio 1.6 (1.1-1.8); Alkaline Phosphatase 61 U/L (38-126); Anion Gap 14.6 mEq/L (5-15); Aspartate Amino Transferase 30 U/L (17-59); Bilirubin,Total 0.8 mg/dl (0.2-1.3); Blood Urea Nitrogen 22 mg/dl (9-20); Calcium 9.5 mg/dl (8.4-10.2); Carbon Dioxide 23 mmol/L (22.0-30.0); Chloride 106 mmol/L (98-107); Cholesterol 148 mg/dl (140-200); Creatinine,Serum 2.00 mg/dl (0.66-1.25); Estimated Glomerular Filt Rate 36 ml/min (>60); GFR (African American) 43 ML/MIN (>60); Globulin 3.0 g/dL (1.3-3.2); Glucose 86 mg/dl (74-100); HDL Cholesterol 36 mg/dl (40-60); Potassium 4.6 mmoL/L (3.5-5.1); Sodium 139 mmol/L (136-145); Total Protein,Serum 7.7 g/dl (6.3-8.2); Triglycerides 184 mg/dl (30-150)
--- OUTSIDE RECORDS SUMMARY | 2025-07-03 17:11 | XMS_ITS | Clinical Summary ---
Author Organization [facility] Address [address] [place], [place] [id number] Phone [email or web address] Care Team Providers Care Inspector Multifocal Lens Name Role Phone Unavailable Primary Care Provider Unavailabl e Social History Tobacco Use Types Packs/Day Years Used Date Smoking Tobacco: Never Assessed Intimate Partner Violence Answer Date R ecorded Insults You Not on file 12/02/2020 Threatens You Not on file 12/02/2020 Screams at You Not on file 12/02/2020 Physically Hurt Not on file 12/02/2020 Intimate Partner Violence Score Not on file 12/02/2020 Stress Answer Date Recorded Stress in your Life Not on file 06/25/2024 Dealing with Stress 3 06/25/2024 Sex and Gender Information Value Date Recorded Sex Assigned at Male 02/01/2023 7:24 AM CDT 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 Gender Identity Male 02/01/2023 7:24 AM CDT Sexual Orientation Not on file Last Filed Vital Signs Vital Sign Reading Time Taken Comments Blood Pressure 124/88 02/03/2023 8:54 AM EDT Pulse - - Temperature - - Respiratory Rate - - Oxygen Saturation - - Inhaled Oxygen Concentration - - Weight 96.6 kg (213 lb) 02/03/2023 8:54 AM EDT Height 180.3 cm (5' 11 ) 02/03/2023 8:54 AM EDT Body Mass Index 29.71 02/03/2023 8:54 AM EDT Plan of Treatment Health Maintenance Due Date Last Done Comments CT Colonography 1976 Colonoscopy 1976 Colorectal Cancer Screening Combo 1976 DNA Cologuard 1976 Dental Cleaning/Exam 1976 FIT or FOBT Test 1976 HIV Screening 1976 Hepatitis C Screening 1976 Sigmoidoscopy 1976 Annual Preventive Exam 1994 Hep B Infection Screening - Triple Screen 1994 Hepatitis B Immunization (1 of 3 - 19+ 3-dose series) 1995 Tetanus Diphtheria and Pertussis Immunization (1 - Tdap) 1995 Covid-19 Immunization (3 - 2024- season) 2025 05/08/2021, 04/05/2021 Influenza Immunization (#1) 2025 Hepatitis A Immunization Aged Out 019, 07/08/2018 No longer eligible based on patient's age to complete this topic HIB Immunization Aged Out No longer e ligible based on patient's age to complete this topic HPV Immunization Aged Out No longer e ligible based on patient's age to complete this topic Pneumococcal Immunization Aged Out No longer eligible based on patient's age to complete this topic Polio Immunization Aged Out No longer eligible based on patient's age to complete this topic Insurance NAILA NO COPAY NB
--- OUTSIDE RECORDS SUMMARY | 2025-07-03 17:11 | XMS_ITS | Clinical Summary ---
Author Organization [facility] Address [address] [place] [address] Care Team Providers Care Care Professionals Name Role Phone Lamont Rodriguez MD Primary Care Provider [phone] Social History Tobacco Use Types Packs/Day Years Used Date Smoking Tobacco: Never Sex and Gender Information Value Date Recorded Sex Assigned at Not on file Legal Sex Male 8:02 PM EDT Gender Identity Not on file Sexual Orientation Not on file Last Filed Vital Signs Vital Sign Reading Time Taken Comments Blood Pressure 107/79 02/01/2019 1:11 PM EDT Pulse 75 02/01/2019 1:11 PM EDT Temperature - - Respiratory Rate - - Oxygen Saturation - - Inhaled Oxygen Concentration - - Weight 114 kg (252 lb 0.1 oz) 02/01/2019 1:11 PM EDT Height 180.3 cm (5' 11 ) 05/03/2014 1:04 PM EDT Body Mass Index 35.15 05/03/2014 1:04 PM EDT Plan of Treatment Not on file Care Teams Care Professionals Relationship Specialty Start Date End Date Lamont Rodriguez MD [address] [facility] [address] [place] [address] PCP - General 01/03/21
== END 2025-07-03 23:59 | disposition home or self-care (01) ==
LOC: LAB.DROPOF 17:10
PROVIDERS: PCP Internal Medicine; Visit Provider Internal Medicine
DX: I12.9 Hypertensive chronic kidney disease with stage 1 through stage 4 chronic kidney disease, or unspecified chronic kidney disease (principal); N18.9 Chronic kidney disease, unspecified; E78.5 Hyperlipidemia, unspecified
CPT/HCPCS: 80053; 80061